=== PATIENT | male | born 1950 | race Caucasian/White ===

== ENCOUNTER → 2022-06-01 09:36 | Outpatient (CLI) | payer MEDICARE, OTHER, SELFPAY ==
[2022-06-01 19:26] LABS: HEMOLYSIS < 15 (0-50); Iron 120 ug/dL (49-181)
[2022-06-01 19:32] LABS: Add Manual Diff / Slide Review NO; Basophils Absolute Auto 0 /uL (0-100); Basophils Percent Auto 0.7 % (0-2); Eosinophils Absolute Auto 500 /uL (0-450); Eosinophils Percent Auto 12.2 % (2-4); Hematocrit 39.1 % (41-53); Hemoglobin 13.4 g/dL (13.5-17.5); Lymphocytes Absolute Auto 900 /uL (1100-4500); Lymphocytes Percent Auto 22.2 % (25-40); Mean Corpuscular HGB Conc 34.2 % (30-36); Mean Corpuscular Hemoglobin 31.4 PG (26-34); Mean Corpuscular Volume 91.9 fL (80-100); Monocytes Absolute Auto 500 /uL (0-900); Monocytes Percent Auto 13.4 % (3-14); Neutrophils Absolute Auto 2000 /uL (1500-7000); Neutrophils Percent Auto 51.5 % (50-75); Platelet Count 264 X10^3/uL (150-400); Red Blood Cell Count 4.26 X10^6/uL (4.5-5.9); Red Cell Distribution Width 13.6 % (11.6-14.8); White Blood Cell Count 3.9 X10^3/uL (4.5-11.0)
[2022-06-01 19:36] LABS: BUN Creatinine Ratio 18.1 (6-22); Blood Urea Nitrogen 15 mg/dL (9-20); Carbon Dioxide 29 mmol/L (22-32); Chloride 104 mmol/L (98-107); Cholesterol 155 mg/dL (140-199); Estimated Glomerular Filt Rate > 60 mL/min (>60); Glucose 101 mg/dL (80-110); HDL Cholesterol 69 mg/dL (40-60); HEMOLYSIS < 15 (0-50); LDL Cholesterol Calculated 77 mg/dL (<100); Potassium 4.3 mmol/L (3.4-5.1); Sodium 139 mmol/L (137-145); Triglycerides 46 mg/dL (35-150)
[2022-06-01 19:39] LABS: Microalbumi Creatinin Ratio Ur 7.4 ug/mg CR (<30); Microalbumin Urine Random 0.8 mg/dL (0-1.6)
[2022-06-01 19:40] LABS: Percent Iron Saturation 47 % (20-50); Total Iron Binding Capacity 253 ug/dL (261-462); Transferrin 193 mg/dL (206-381)
[2022-06-01 19:42] LABS: Hemoglobin A1C% w Est Avg Glu 5.6 % (4.0-6.0)
[2022-06-01 20:32] LABS: Vitamin B12 274 pg/mL (239-931)
== END ==
PROVIDERS: Family Provider Family Medicine; PCP Family Medicine; Visit Provider Family Medicine
DX: D64.9 Anemia, unspecified (principal); E78.2 Mixed hyperlipidemia; R73.9 Hyperglycemia, unspecified; I10 Essential (primary) hypertension; K21.9 Gastro-esophageal reflux disease without esophagitis; M25.552 Pain in left hip
CPT/HCPCS: 80048; 80061; 82043; 82570; 82607; 83036; 83540; 83550; 85025

== ENCOUNTER → 2022-06-02 09:27 | Outpatient (CLI) | payer MEDICARE, OTHER, SELFPAY ==
[2022-06-04 12:29] LABS: Fecal Immunochemical Test Negative (Negative)
== END ==
PROVIDERS: Family Provider Family Medicine; PCP Family Medicine; Visit Provider Family Medicine
DX: D64.9 Anemia, unspecified (principal); E78.2 Mixed hyperlipidemia; I10 Essential (primary) hypertension; K21.9 Gastro-esophageal reflux disease without esophagitis; M25.552 Pain in left hip; R73.9 Hyperglycemia, unspecified
CPT/HCPCS: 82274

== ENCOUNTER → 2023-09-14 10:04 | Outpatient (CLI) | payer MEDICARE, OTHER, SELFPAY ==
[2023-09-14 10:27] LABS: Add Manual Diff / Slide Review NO; Basophils Absolute Auto 0 /uL (0-100); Basophils Percent Auto 0.8 % (0-2); Eosinophils Absolute Auto 400 /uL (0-450); Eosinophils Percent Auto 10.1 % (2-4); Hematocrit 40.4 % (41-53); Hemoglobin 13.7 g/dL (13.5-17.5); Lymphocytes Absolute Auto 1100 /uL (1100-4500); Lymphocytes Percent Auto 25.7 % (25-40); Mean Corpuscular HGB Conc 33.9 % (30-36); Mean Corpuscular Hemoglobin 31.1 PG (26-34); Mean Corpuscular Volume 91.9 fL (80-100); Monocytes Absolute Auto 600 /uL (0-900); Monocytes Percent Auto 13.5 % (3-14); Neutrophils Absolute Auto 2100 /uL (1500-7000); Neutrophils Percent Auto 49.9 % (50-75); Platelet Count 261 X10^3/uL (150-400); Red Blood Cell Count 4.39 X10^6/uL (4.5-5.9); Red Cell Distribution Width 14.3 % (11.6-14.8); White Blood Cell Count 4.2 X10^3/uL (4.5-11.0)
[2023-09-14 10:41] LABS: Alanine Aminotransferase 23 IU/L (<50); Albumin 3.9 g/dL (3.5-5.0); Albumin Globulin Ratio 1.3 (1.0-2.8); Alkaline Phosphatase 75 U/L (38-126); Aspartate Aminotransferase 24 IU/L (17-59); BUN Creatinine Ratio 19.5 (6-22); Bilirubin Total 0.5 mg/dL (0.2-1.3); Blood Urea Nitrogen 15 mg/dL (9-20); Calcium 9.3 mg/dL (8.4-10.2); Carbon Dioxide 27 mmol/L (22-32); Chloride 103 mmol/L (98-107); Cholesterol 299 mg/dL (140-199); Estimated Glomerular Filt Rate > 60 mL/min (>60); Glucose 112 mg/dL (80-110); HDL Cholesterol 55 mg/dL (40-60); HEMOLYSIS < 15 (0-50); LDL Cholesterol Calculated 211 mg/dL (<100); Potassium 4.2 mmol/L (3.4-5.1); Sodium 137 mmol/L (137-145); Total Protein 6.9 g/dL (6.3-8.2); Triglycerides 167 mg/dL (35-150)
[2023-09-14 11:42] LABS: Hep C Virus Ab w/Reflex Quant NEGATIVE s/c (NEGATIVE)
== END ==
PROVIDERS: Family Provider Family Medicine; PCP Family Medicine; Referring Provider Family Medicine; Visit Provider Family Medicine
DX: E78.2 Mixed hyperlipidemia (principal); I10 Essential (primary) hypertension; D64.9 Anemia, unspecified
CPT/HCPCS: 36415; 80053; 80061; 85025; 86803

== ENCOUNTER → 2023-11-04 14:00 | Outpatient (CLI) | payer MEDICARE, OTHER, SELFPAY ==
[2023-11-04 14:29] LABS: Add Manual Diff / Slide Review NO; Basophils Absolute Auto 0 /uL (0-100); Basophils Percent Auto 0.4 % (0-2); Eosinophils Absolute Auto 300 /uL (0-450); Eosinophils Percent Auto 7.1 % (2-4); Hematocrit 40.5 % (41-53); Hemoglobin 13.7 g/dL (13.5-17.5); Lymphocytes Absolute Auto 1000 /uL (1100-4500); Lymphocytes Percent Auto 20.5 % (25-40); Mean Corpuscular HGB Conc 33.8 % (30-36); Mean Corpuscular Hemoglobin 31.5 PG (26-34); Mean Corpuscular Volume 93.4 fL (80-100); Monocytes Absolute Auto 600 /uL (0-900); Monocytes Percent Auto 12.9 % (3-14); Neutrophils Absolute Auto 2900 /uL (1500-7000); Neutrophils Percent Auto 59.1 % (50-75); Platelet Count 242 X10^3/uL (150-400); Red Blood Cell Count 4.34 X10^6/uL (4.5-5.9); Red Cell Distribution Width 13.6 % (11.6-14.8); White Blood Cell Count 4.8 X10^3/uL (4.5-11.0)
[2023-11-04 18:41] LABS: BUN Creatinine Ratio 21.1 (6-22); Blood Urea Nitrogen 15 mg/dL (9-20); Calcium 9.5 mg/dL (8.4-10.2); Carbon Dioxide 28 mmol/L (22-32); Chloride 105 mmol/L (98-107); Estimated Glomerular Filt Rate > 60 mL/min (>60); Glucose 123 mg/dL (80-110); HEMOLYSIS < 15 (0-50); Potassium 4.1 mmol/L (3.4-5.1); Sodium 138 mmol/L (137-145)
== END ==
PROVIDERS: Family Provider Family Medicine; PCP Family Medicine; Referring Provider Orthopaedic Surgery; Visit Provider Orthopaedic Surgery
DX: Z01.818 Encounter for other preprocedural examination (principal); Z01.812 Encounter for preprocedural laboratory examination
CPT/HCPCS: 36415; 80048; 85025; 93005; 93010

== ENCOUNTER → 2023-11-19 13:33 | Outpatient (CLI) | payer MEDICARE, OTHER, SELFPAY ==
--- NOTE | 2023-11-19 | DI.CT.S_ITS ---
PROCEDURE: CT UE RT WO CON INDICATIONS: Primary osteoarthritis, right shoulder TECHNIQUE: Noncontrast 1-1.5 mm thick sections acquired from the acromioclavicular joint to the inferior scapula, with coronal and sagittal reformatting. COMPARISON: [facility] [place], CR, XR SHOULDER 2+ VIEWS RIGHT, 07/21/2023, 8:51. FINDINGS: Image quality: Excellent. Bones: There is sclerosis and fragmentation with mild articular surface depression at the superior medial aspect of the humeral head involving the articular surface comprising an area of approximately 4.7 x 3.5 by 1.3 cm. The articular surface osseous fragments appear sclerotic with multiple fracture lines extending to the articular surface. Findings may be secondary to osteonecrosis with secondary articular surface collapse and fragmentation versus a depressed and comminuted subchondral fracture. Mild chronic fracture deformity at the humeral neck. Moderate to severe joint space narrowing in the glenohumeral joint. Marginal osteophyte formation is seen on both sides of the joint. Fpea-[id number]-xpcufszp degenerative changes at the acromioclavicular joint. Old healed right-sided rib fracture. The remaining visualized osseous structures are intact. There is generalized osteopenia. Soft tissues: There is a small glenohumeral effusion. The rotator cuff musculature is normal in bulk. However, the tendons, ligaments, articular cartilages, and labrum are not well evaluated with standard CT. The included portions of the lung are intact. IMPRESSION: 1. Sclerosis, fragmentation, and mild depression of the superior medial humeral head articular surface, which may be secondary to osteonecrosis and secondary collapse versus a comminuted subchondral fracture. 2. Moderate to severe glenohumeral osteoarthrosis. Small glenohumeral effusion. 3. [id number] acromioclavicular joint osteoarthrosis. Approved by: Bernard Navarro M.D. on 11/21/2023 at 16:36
== END ==
PROVIDERS: Family Provider Family Medicine; PCP Family Medicine; Referring Provider Orthopaedic Surgery; Visit Provider Orthopaedic Surgery
DX: M19.011 Primary osteoarthritis, right shoulder (principal); M25.411 Effusion, right shoulder
CPT/HCPCS: 73200

== ENCOUNTER → 2024-09-20 13:38 | Outpatient (CLI) | payer MEDICARE, OTHER, SELFPAY ==
[2024-09-20 15:19] LABS: Alanine Aminotransferase 29 IU/L (<50); Albumin Globulin Ratio 1.4 (1.0-2.8); Alkaline Phosphatase 100 U/L (38-126); Aspartate Aminotransferase 32 IU/L (17-59); BUN Creatinine Ratio 14.1 (6-22); Bilirubin Total 0.7 mg/dL (0.2-1.3); Blood Urea Nitrogen 12 mg/dL (9-20); Calcium 9.2 mg/dL (8.4-10.2); Carbon Dioxide 26 mmol/L (22-32); Chloride 106 mmol/L (98-107); Cholesterol 194 mg/dL (140-199); Estimated Glomerular Filt Rate > 60 mL/min (>60); Globulin 2.9 g/dL (1.7-4.1); Glucose 100 mg/dL (80-110); HDL Cholesterol 62 mg/dL (40-60); HEMOLYSIS < 15 (0-50); LDL Cholesterol Calculated 110 mg/dL (<100); Potassium 4.3 mmol/L (3.4-5.1); Sodium 138 mmol/L (137-145); Total Protein 6.9 g/dL (6.3-8.2); Triglycerides 109 mg/dL (35-150)
== END ==
PROVIDERS: Family Provider Family Medicine; PCP Family Medicine; Referring Provider Family Medicine; Visit Provider Family Medicine
DX: Z00.00 Encounter for general adult medical examination without abnormal findings (principal); E78.2 Mixed hyperlipidemia; I10 Essential (primary) hypertension; R73.01 Impaired fasting glucose
CPT/HCPCS: 36415; 80053; 80061; 83036

== ENCOUNTER → 2025-02-22 09:33 | Outpatient (CLI) | payer MEDICARE, OTHER, SELFPAY ==
--- NOTE | 2025-02-22 09:36 | DI.RAD.S_ITS ---
PROCEDURE: XR CHEST 2V INDICATIONS: Rt anterior rib pain TECHNIQUE: 2 views of the chest were acquired. COMPARISON: None. FINDINGS: Surgical changes and devices: None. Lungs and pleura: Lungs are clear. No pleural effusions or pneumothorax. Mediastinum: Mediastinal contours are normal. Heart size is normal. Bones and chest wall: No suspicious bony abnormalities. Soft tissues appear unremarkable. IMPRESSION: No acute cardiopulmonary abnormality is seen. Dictated by: Liang Gay M.D. on 02/22/2025 at 10:42 Approved by: Liang Gay M.D. on 02/22/2025 at 10:43
== END ==
PROVIDERS: PCP Family Medicine; Referring Provider Family Medicine; Visit Provider Family Medicine
DX: R07.81 Pleurodynia (principal)
CPT/HCPCS: 71046

== ENCOUNTER 2025-04-02 14:45 | Inpatient (IN) | payer MEDICARE, OTHER, SELFPAY ==
[2025-04-02 14:54] VITALS: BP 169/95; PULSE 76; RESP 16; TEMP 36.6; O2SAT 96; BMI 27.5
[2025-04-02 15:07] LABS: Add Manual Diff / Slide Review NO; Basophils Absolute Auto 0 /uL (0-100); Basophils Percent Auto 0.5 % (0-2); Eosinophils Absolute Auto 300 /uL (0-450); Eosinophils Percent Auto 4.7 % (2-4); Hematocrit 42.4 % (41-53); Hemoglobin 14.5 g/dL (13.5-17.5); Lymphocytes Absolute Auto 1300 /uL (1100-4500); Lymphocytes Percent Auto 19.8 % (25-40); Mean Corpuscular HGB Conc 34.3 % (30-36); Mean Corpuscular Hemoglobin 31.7 PG (26-34); Mean Corpuscular Volume 92.5 fL (80-100); Monocytes Absolute Auto 700 /uL (0-900); Monocytes Percent Auto 11.2 % (3-14); Neutrophils Absolute Auto 4100 /uL (1500-7000); Neutrophils Percent Auto 63.8 % (50-75); Platelet Count 270 X10^3/uL (150-400); Red Blood Cell Count 4.58 X10^6/uL (4.5-5.9); Red Cell Distribution Width 13.9 % (11.6-14.8); White Blood Cell Count 6.4 X10^3/uL (4.5-11.0)
[2025-04-02] MEDS: ONDANSETRON 4 MG/2 ML INJ IV ×2 (15:17→22:08)
--- NOTE | 2025-04-02 15:19 | EKG_ITS ---
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
[2025-04-02 15:20] LABS: Alanine Aminotransferase 34 IU/L (<50); Albumin 4.1 g/dL (3.5-5.0); Albumin Globulin Ratio 1.3 (1.0-2.8); Alkaline Phosphatase 98 U/L (38-126); Aspartate Aminotransferase 39 IU/L (17-59); BUN Creatinine Ratio 18.6 (6-22); Bilirubin Total 0.7 mg/dL (0.2-1.3); Blood Urea Nitrogen 13 mg/dL (9-20); Calcium 8.7 mg/dL (8.4-10.2); Carbon Dioxide 23 mmol/L (22-32); Chloride 106 mmol/L (98-107); Estimated Glomerular Filt Rate > 60 mL/min (>60); Globulin 3.2 g/dL (1.7-4.1); Glucose 125 mg/dL (70-99); HEMOLYSIS < 15 (0-50); Lipase 88 U/L (23-300); Sodium 136 mmol/L (137-145); Total Protein 7.3 g/dL (6.3-8.2)
--- NOTE | 2025-04-02 15:51 | DI.US.S_ITS ---
PROCEDURE: US ABDOMEN LIMITED INDICATIONS: RUQ pain TECHNIQUE: Real-time focused scanning was performed of the abdomen, with image documentation. COMPARISON: None. FINDINGS: The liver is normal in size and demonstrates no suspicious lesions. The gallbladder is overall not well seen. No findings of gallstones or sludge are seen. The gallbladder wall is not thickened, measuring 3 mm or less. No specific pericholecystic fluid is seen. The sonographic Griffiths sign is negative. There is no biliary dilatation, the common bile duct measures 5 mm. IMPRESSION: The gallbladder demonstrates a normal sonographic appearance. No biliary dilatation is seen. Dictated by: Bruce Arredondo M.D. on 04/02/2025 at 15:24 Approved by: Bruce Arredondo M.D. on 04/02/2025 at 15:25
--- NOTE | 2025-04-02 15:59 | ED.ABDPAIN ---
HPI - Abdominal Pain <Vinicio Biggs PA-C - Last Filed: 04/02/25 18:55> General Chief Complaint: Abdominal Pain Stated Complaint: Rt Rib pain, Nausea Time Seen by Provider: 04/02/25 15:41 Source: patient Mode of arrival: Ambulatory History of Present Illness HPI narrative: 74-year-old male with past medical history hyperlipidemia, hypertension, GERD, depression presents to the ED for 1-2 months of right upper quadrant pain. Patient was seen by his PCP Dr. Hillman and prescribed naproxen due to suspicion for a musculoskeletal etiology. Patient's symptoms have worsened since then, he presents to the ED with what he feels like is right sided lower rib pain versus right upper quadrant pain. Patient is in significant pain and is pacing in the ED. patient also endorses nausea. No fever, chills, shortness of breath, vomiting, constipation, diarrhea, lightheadedness, dizziness, syncope. Patient has a history of GERD for which he takes pantoprazole. Related Data Previous Rx's Medication Instructions Recorded atorvastatin 80 mg tablet (Lipitor) 80 mg PO BEDTIME cholesterol #90 09/20/24 tabs losartan 50 mg tablet 50 mg PO DAILY #90 tabs 09/20/24 pantoprazole 40 mg tablet,delayed 40 mg PO QAM #90 tabs 09/20/24 release ezetimibe 10 mg tablet (Zetia) 10 mg PO DAILY #100 tabs 09/21/24 naproxen 500 mg tablet 500 mg PO BID PRN pain #60 tabs 02/22/25 cyclobenzaprine 10 mg tablet 10 mg PO Q8HR PRN Spasms #60 tabs 04/04/25 lidocaine 5 % topical patch 1 patch topical DAILY #30 ea 04/04/25 oxycodone 5 mg capsule 5 mg PO Q8H PRN pain #14 caps 04/04/25 Allergies Allergy/AdvReac Type Severity Reaction Status Date / Time pollen extracts Allergy Mild Verified 04/02/25 14:58 Review of Systems <Vinicio Biggs PA-C - Last Filed: 04/02/25 18:55> Constitutional Constitutional: Denies chills, Denies fatigue, Denies fever(s), Denies frequent falls, Denies lethargy and Denies weakness Eyes Eyes: Denies change in vision, Denies eye discharge, Denies irritation and Denies loss of vision ENT Ears, Nose, Mouth, and Throat: Denies change in voice, Denies dizziness, Denies neck pain, Denies sore throat and Denies throat swelling Cardiovascular Cardiovascular: Reports chest pain, Denies irregular heart rhythm, Denies lightheadedness, Denies palpitations, Denies dyspnea, Denies dyspnea on exertion and Denies orthopnea Respiratory Respiratory: Denies cough, Denies dyspnea, Denies dyspnea on exertion and Denies wheezing Gastrointestinal Gastrointestinal: Reports abdominal pain, Denies change in bowel habits, Denies diarrhea, Reports nausea and Denies vomiting Musculoskeletal Musculoskeletal: Denies neck pain and Denies numbness Integumentary/Breasts Skin/Breast: Denies pruritus, Denies erythema, Denies rash and Denies wounds Neurologic Neurologic: Denies behavioral changes, Denies confusion, Denies dizziness, Denies frequent falls, Denies loss of vision, Denies numbness and Denies weakness Psychiatric Psychiatric: Denies anxiety, Denies behavioral changes, Denies confusion, Denies depression, Denies homicidal ideation and Denies suicidal ideation Endocrine Endocrine: Denies fatigue, Denies flushing and Denies palpitations Hematologic/Lymphatic Hematologic/Lymphatic: Denies easy bruising Allergic/Immunologic Allergic/Immunologic: Denies urticaria, Denies throat swelling and Denies wheezing Patient History <Vinicio Biggs PA-C - Last Filed: 04/02/25 18:55> Medical History POLST (Physician Orders for Life-Sustaining Treatment) Encounter for annual wellness exam in Medicare patient HLD (hyperlipidemia) Kidney stones Insomnia Depression, unspecified Surgical History H/O vasectomy Hx of lithotripsy History of surgery History of total right hip replacement (~2015) S/P cervical spinal fusion (2011) Social History household members: significant other alcohol intake: current Smoking Status: Former smoker alcohol intake frequency: a few times a week Exam <Vinicio Biggs PA-C - Last Filed: 04/02/25 18:55> Narrative Exam Narrative: Const General:?cooperative, healthy appearing and comfortable HENNC Head:?normal to inspection Ears:?hearing grossly normal bilaterally Nose:?external nose normal Face and sinus:?normal facial exam and sinuses nontender Mouth:?oral mucosae normal Throat:?posterior oropharynx normal Eyes General:?appearance normal, both eyes and all related structures Neck Neck:?normal visual inspection and no lymphadenopathy noted Resp Effort & Inspection:?normal respiratory effort Auscultation:?clear to auscultation bilaterally Cardio Rate:?regular rate Rhythm:?regular rhythm GI Abdomen is soft, nondistended. Tenderness to palpation in the right upper quadrant and epigastric regions. Neuro General:?patient alert, patient awake and patient oriented x3 Initial Vital Signs Initial Vital Signs: Vital Signs Temperature 98 F 04/02/25 14:54 Pulse Rate 76 04/02/25 14:54 Respiratory Rate 16 04/02/25 14:54 Blood Pressure 169/95 H 04/02/25 14:54 Pulse Oximetry 96 04/02/25 14:54 Oxygen Delivery Method Room Air 04/02/25 14:54 <Betina Doyle DO - Last Filed: 04/08/25 23:45> Initial Vital Signs Initial Vital Signs: Vital Signs Temperature 98 F 04/02/25 14:54 Pulse Rate 76 04/02/25 14:54 Respiratory Rate 16 04/02/25 14:54 Blood Pressure 169/95 H 04/02/25 14:54 Pulse Oximetry 96 04/02/25 14:54 Oxygen Delivery Method Room Air 04/02/25 14:54 Course <Vinicio Biggs PA-C - Last Filed: 04/02/25 18:55> Orders Ordered: Discontinued Medications Acetaminophen (Acetaminophen 325 Mg Tablet) 650 mg PO Q6H PRN PRN Reason: Fever/Mild Pain (1-3) Hydrocodone Bitart/Acetaminophen (Hydrocodone/Acet 5/325 Tablet) 1 tab PO Q4H PRN PRN Reason: Pain, Moderate (4-6) Atorvastatin Calcium (Atorvastatin 20 Mg Tablet) 80 mg PO BEDTIME AYAN Last Admin: 04/03/25 20:24 Dose: 80 mg Documented By: Calcium Carbonate (Calcium Carbonate 500 Mg Tab) 500 mg PO TID PRN PRN Reason: Heartburn Last Admin: 04/03/25 21:41 Dose: 500 mg Documented By: Cyclobenzaprine HCl (Cyclobenzaprine 10 Mg Tablet) 10 mg PO Q8HR PRN PRN Reason: Spasms Last Admin: 04/04/25 07:57 Dose: 10 mg Documented By: Admin: 04/03/25 19:06 Dose: 10 mg Documented By: DEBORAH Diazepam (Diazepam 10 Mg/2 Ml Syringe) 2.5 mg IV Q4H PRN PRN Reason: ANXIETY / NAUSEA Diazepam (Diazepam 10 Mg/2 Ml Syringe) 2.5 mg IV Q2H PRN PRN Reason: ANXIETY / NAUSEA Enoxaparin Sodium (Enoxaparin 40 Mg/0.4 Ml Syringe) 40 mg SUBCUT DAILY [facility] Last Admin: 04/04/25 10:17 Dose: 40 mg Documented By: DEBORAH Famotidine (Famotidine 20 Mg/2 Ml Vial) 40 mg IV NOW [facility] Last Admin: 04/02/25 17:08 Dose: 40 mg Documented By: RB Hydromorphone HCl (Hydromorphone 1 Mg Inj) 1 mg IV NOW ONE Stop: 04/02/25 17:52 Last Admin: 04/02/25 17:57 Dose: 1 mg Documented By: RB Hydromorphone HCl (Hydromorphone 0.5 Mg Inj) 0.5 mg IV Q2H PRN PRN Reason: Pain, Severe (7-10) Last Admin: 04/03/25 05:20 Dose: 0.5 mg Documented By: Admin: 04/03/25 00:54 Dose: 0.5 mg Documented By: Admin: 04/02/25 23:05 Dose: 0.5 mg Documented By: Admin: 04/02/25 19:44 Dose: 0.5 mg Documented By: AMANDA Hydromorphone HCl (Hydromorphone 1 Mg Inj) 1 mg IV Q2H PRN PRN Reason: Pain, Severe (7-10) Last Admin: 04/03/25 10:03 Dose: 1 mg Documented By: Admin: 04/03/25 07:59 Dose: 1 mg Documented By: JONA Hydromorphone HCl (Hydromorphone 0.5 Mg Inj) 0.5 mg IV Q2H PRN PRN Reason: Pain, Severe (7-10) Last Admin: 04/04/25 06:46 Dose: 0.5 mg Documented By: Admin: 04/03/25 18:17 Dose: 0.5 mg Documented By: Admin: 04/03/25 14:51 Dose: 0.5 mg Documented By: CEW Sodium Chloride (Normal Saline 0.9%) 1,000 mls @ 100 mls/hr IV CONT AYAN Last Admin: 04/03/25 06:30 Dose: 100 mls/hr Documented By: Infusion: 04/03/25 05:44 Dose: Infused Documented By: Admin: 04/02/25 19:44 Dose: 100 mls/hr Documented By: TLS Lactated Ringer's (Lactated Ringers) 1,000 mls @ 150 mls/hr IV NOW ONE Stop: 04/03/25 16:56 Last Infusion: 04/03/25 11:46 Dose: Infused Documented By: Admin: 04/03/25 11:11 Dose: 150 mls/hr Documented By: Infusion: 04/03/25 11:10 Dose: Infused Documented By: Admin: 04/03/25 10:18 Dose: 150 mls/hr Documented By: TC Lactated Ringer's (Lactated Ringers) 1,000 mls @ 125 mls/hr IV CONT AYAN Last Admin: 04/04/25 05:38 Dose: 125 mls/hr Documented By: Infusion: 04/04/25 05:28 Dose: Infused Documented By: Admin: 04/03/25 21:28 Dose: 125 mls/hr Documented By: Infusion: 04/03/25 20:30 Dose: Infused Documented By: Admin: 04/03/25 12:30 Dose: 125 mls/hr Documented By: DEBORAH Ketorolac Tromethamine (Ketorolac 30 Mg/Ml Vial) 15 mg IV NOW ONE Stop: 04/02/25 15:48 Last Admin: 04/02/25 16:04 Dose: 15 mg Documented By: TC Lidocaine (Lidocaine 5% Patch) 1 each TOP DAILY AYAN Last Admin: 04/04/25 10:17 Dose: 1 each Documented By: ANNAW Lorazepam (Lorazepam 2 Mg/Ml Inj) 1 mg IV NOW ONE Stop: 04/03/25 06:46 Last Admin: 04/03/25 07:37 Dose: Not Given Documented By: AGW Morphine Sulfate (Morphine 4 Mg/Ml Inj) 4 mg IV NOW ONE Stop: 04/02/25 16:45 Last Admin: 04/02/25 16:48 Dose: 4 mg Documented By: RB Naloxone HCl (Naloxone 0.4 Mg/Ml Vial) 0.2 mg IV Q2MIN PRN PRN Reason: Opiate Reversal Naloxone HCl (Naloxone 0.4 Mg/Ml Vial) 0.2 mg IV Q2MIN PRN PRN Reason: Opiate Reversal Ondansetron HCl (Ondansetron 4 Mg/2 Ml Inj) 4 mg IV NOW PRN PRN Reason: Nausea And Vomiting Last Admin: 04/02/25 15:17 Dose: 4 mg Documented By: FAYE Ondansetron HCl (Ondansetron 4 Mg Odt) 4 mg PO NOW PRN PRN Reason: Nausea And Vomiting Ondansetron HCl (Ondansetron 4 Mg/2 Ml Inj) 4 mg IV Q8HR PRN PRN Reason: Nausea And Vomiting Last Admin: 04/02/25 22:08 Dose: 4 mg Documented By: WINTER Ondansetron HCl (Ondansetron 4 Mg/2 Ml Inj) 4 mg IV Q4HR PRN PRN Reason: Nausea And Vomiting Last Admin: 04/03/25 06:17 Dose: 4 mg Documented By: NIGEL Ondansetron HCl (Ondansetron 4 Mg/2 Ml Inj) 4 mg IV Q4HR PRN PRN Reason: Nausea And Vomiting Last Admin: 04/03/25 14:51 Dose: 4 mg Documented By: DEBORAH Oxycodone HCl (Oxycodone Ir 10 Mg Tablet) 10 mg PO Q3H PRN PRN Reason: Pain, Severe (7-10) Last Admin: 04/04/25 05:37 Dose: 10 mg Documented By: Admin: 04/04/25 02:07 Dose: 10 mg Documented By: Admin: 04/03/25 13:39 Dose: 10 mg Documented By: DEBORAH Sodium Chloride (Sodium Chloride 0.9% Flush) 10 ml IV PRN PRN PRN Reason: Flush Sodium Chloride (Sodium Chloride 0.9% Flush) 10 ml IV BID AYAN Last Admin: 04/04/25 07:57 Dose: Not Given Documented By: DEBORAH Vital Signs Vital signs: Vital Signs - 8 hr 04/02/25 14:54 04/02/25 16:50 04/02/25 18:00 Temperature 98 F Pulse Rate 76 68 62 Respiratory Rate 16 22 28 H Blood Pressure 169/95 H 163/83 H 158/89 H Pulse Oximetry 96 98 99 Oxygen Delivery Method Room Air Room Air Room Air <Betina Doyle, DO - Last Filed: 04/08/25 23:45> Orders Ordered: Discontinued Medications Acetaminophen (Acetaminophen 325 Mg Tablet) 650 mg PO Q6H PRN PRN Reason: Fever/Mild Pain (1-3) Hydrocodone Bitart/Acetaminophen (Hydrocodone/Acet 5/325 Tablet) 1 tab PO Q4H PRN PRN Reason: Pain, Moderate (4-6) Atorvastatin Calcium (Atorvastatin 20 Mg Tablet) 80 mg PO BEDTIME [facility] Last Admin: 04/03/25 20:24 Dose: 80 mg Documented By: Calcium Carbonate (Calcium Carbonate 500 Mg Tab) 500 mg PO TID PRN PRN Reason: Heartburn Last Admin: 04/03/25 21:41 Dose: 500 mg Documented By: Cyclobenzaprine HCl (Cyclobenzaprine 10 Mg Tablet) 10 mg PO Q8HR PRN PRN Reason: Spasms Last Admin: 04/04/25 07:57 Dose: 10 mg Documented By: Admin: 04/03/25 19:06 Dose: 10 mg Documented By: DEBORAH Diazepam (Diazepam 10 Mg/2 Ml Syringe) 2.5 mg IV Q4H PRN PRN Reason: ANXIETY / NAUSEA Diazepam (Diazepam 10 Mg/2 Ml Syringe) 2.5 mg IV Q2H PRN PRN Reason: ANXIETY / NAUSEA Enoxaparin Sodium (Enoxaparin 40 Mg/0.4 Ml Syringe) 40 mg SUBCUT DAILY [facility] Last Admin: 04/04/25 10:17 Dose: 40 mg Documented By: DEBORAH Famotidine (Famotidine 20 Mg/2 Ml Vial) 40 mg IV NOW [facility] Last Admin: 04/02/25 17:08 Dose: 40 mg Documented By: HYACINTH Hydromorphone HCl (Hydromorphone 1 Mg Inj) 1 mg IV NOW ONE Stop: 04/02/25 17:52 Last Admin: 04/02/25 17:57 Dose: 1 mg Documented By: HYACINTH Hydromorphone HCl (Hydromorphone 0.5 Mg Inj) 0.5 mg IV Q2H PRN PRN Reason: Pain, Severe (7-10) Last Admin: 04/03/25 05:20 Dose: 0.5 mg Documented By: Admin: 04/03/25 00:54 Dose: 0.5 mg Documented By: Admin: 04/02/25 23:05 Dose: 0.5 mg Documented By: Admin: 04/02/25 19:44 Dose: 0.5 mg Documented By: AMANDA Hydromorphone HCl (Hydromorphone 1 Mg Inj) 1 mg IV Q2H PRN PRN Reason: Pain, Severe (7-10) Last Admin: 04/03/25 10:03 Dose: 1 mg Documented By: Admin: 04/03/25 07:59 Dose: 1 mg Documented By: JONA Hydromorphone HCl (Hydromorphone 0.5 Mg Inj) 0.5 mg IV Q2H PRN PRN Reason: Pain, Severe (7-10) Last Admin: 04/04/25 06:46 Dose: 0.5 mg Documented By: Admin: 04/03/25 18:17 Dose: 0.5 mg Documented By: Admin: 04/03/25 14:51 Dose: 0.5 mg Documented By: DEBORAH Sodium Chloride (Normal Saline 0.9%) 1,000 mls @ 100 mls/hr IV CONT AYAN Last Admin: 04/03/25 06:30 Dose: 100 mls/hr Documented By: Infusion: 04/03/25 05:44 Dose: Infused Documented By: Admin: 04/02/25 19:44 Dose: 100 mls/hr Documented By: AMANDA Lactated Ringer's (Lactated Ringers) 1,000 mls @ 150 mls/hr IV NOW ONE Stop: 04/03/25 16:56 Last Infusion: 04/03/25 11:46 Dose: Infused Documented By: Admin: 04/03/25 11:11 Dose: 150 mls/hr Documented By: Infusion: 04/03/25 11:10 Dose: Infused Documented By: Admin: 04/03/25 10:18 Dose: 150 mls/hr Documented By: GMAA Lactated Ringer's (Lactated Ringers) 1,000 mls @ 125 mls/hr IV CONT AYAN Last Admin: 04/04/25 05:38 Dose: 125 mls/hr Documented By: Infusion: 04/04/25 05:28 Dose: Infused Documented By: Admin: 04/03/25 21:28 Dose: 125 mls/hr Documented By: Infusion: 04/03/25 20:30 Dose: Infused Documented By: Admin: 04/03/25 12:30 Dose: 125 mls/hr Documented By: DEBORAH Ketorolac Tromethamine (Ketorolac 30 Mg/Ml Vial) 15 mg IV NOW ONE Stop: 04/02/25 15:48 Last Admin: 04/02/25 16:04 Dose: 15 mg Documented By: GAMA Lidocaine (Lidocaine 5% Patch) 1 each TOP DAILY AYAN Last Admin: 04/04/25 10:17 Dose: 1 each Documented By: DEBORAH Lorazepam (Lorazepam 2 Mg/Ml Inj) 1 mg IV NOW ONE Stop: 04/03/25 06:46 Last Admin: 04/03/25 07:37 Dose: Not Given Documented By: WINTER Morphine Sulfate (Morphine 4 Mg/Ml Inj) 4 mg IV NOW ONE Stop: 04/02/25 16:45 Last Admin: 04/02/25 16:48 Dose: 4 mg Documented By: HYACINTH Naloxone HCl (Naloxone 0.4 Mg/Ml Vial) 0.2 mg IV Q2MIN PRN PRN Reason: Opiate Reversal Naloxone HCl (Naloxone 0.4 Mg/Ml Vial) 0.2 mg IV Q2MIN PRN PRN Reason: Opiate Reversal Ondansetron HCl (Ondansetron 4 Mg/2 Ml Inj) 4 mg IV NOW PRN PRN Reason: Nausea And Vomiting Last Admin: 04/02/25 15:17 Dose: 4 mg Documented By: FAYE Ondansetron HCl (Ondansetron 4 Mg Odt) 4 mg PO NOW PRN PRN Reason: Nausea And Vomiting Ondansetron HCl (Ondansetron 4 Mg/2 Ml Inj) 4 mg IV Q8HR PRN PRN Reason: Nausea And Vomiting Last Admin: 04/02/25 22:08 Dose: 4 mg Documented By: WINTER Ondansetron HCl (Ondansetron 4 Mg/2 Ml Inj) 4 mg IV Q4HR PRN PRN Reason: Nausea And Vomiting Last Admin: 04/03/25 06:17 Dose: 4 mg Documented By: NIGEL Ondansetron HCl (Ondansetron 4 Mg/2 Ml Inj) 4 mg IV Q4HR PRN PRN Reason: Nausea And Vomiting Last Admin: 04/03/25 14:51 Dose: 4 mg Documented By: DEBORAH Oxycodone HCl (Oxycodone Ir 10 Mg Tablet) 10 mg PO Q3H PRN PRN Reason: Pain, Severe (7-10) Last Admin: 04/04/25 05:37 Dose: 10 mg Documented By: Admin: 04/04/25 02:07 Dose: 10 mg Documented By: Admin: 04/03/25 13:39 Dose: 10 mg Documented By: DEBORAH Sodium Chloride (Sodium Chloride 0.9% Flush) 10 ml IV PRN PRN PRN Reason: Flush Sodium Chloride (Sodium Chloride 0.9% Flush) 10 ml IV BID AYAN Last Admin: 04/04/25 07:57 Dose: Not Given Documented By: DEBORAH Vital Signs Vital signs: Vital Signs - 8 hr 04/02/25 14:54 04/02/25 16:50 04/02/25 18:00 Temperature 98 F Pulse Rate 76 68 62 Respiratory Rate 16 22 28 H Blood Pressure 169/95 H 163/83 H 158/89 H Pulse Oximetry 96 98 99 Oxygen Delivery Method Room Air Room Air Room Air MDM - Abdominal Pain <Vinicio Biggs PA-C - Last Filed: 04/02/25 18:55> Lab Data 04/04/25 04:00 04/03/25 05:10 Labs: Lab Results 04/02/25 04/02/25 04/03/25 Range/Units 14:55 15:40 05:10 WBC 6.4 6.4 (4.5-11.0) X10^3/uL RBC 4.58 4.32 L (4.5-5.9) X10^6/uL Hgb 14.5 13.6 (13.5-17.5) g/dL Hct 42.4 40.1 L (41-53) % MCV 92.5 92.9 (80-100) fL MCH 31.7 31.4 (26-34) PG MCHC 34.3 33.8 (30-36) % RDW 13.9 14.1 (11.6-14.8) % Plt Count 270 266 (150-400) X10^3/uL Neut % (Auto) 63.8 66.4 (50-75) % Lymph % (Auto) 19.8 L 19.5 L (25-40) % [place] % (Auto) 11.2 10.8 (3-14) % Eos % (Auto) 4.7 H 2.8 (2-4) % Baso % (Auto) 0.5 0.5 (0-2) % Neut # (Auto) 4100 4300 (5107-4126) /uL Lymph # (Auto) 1300 1200 (2174-3502) /uL [place] # (Auto) 700 700 (0-900) /uL Eos # (Auto) 300 200 (0-450) /uL Baso # (Auto) 0 0 (0-100) /uL D-Dimer 957 H (<500) ng/ml Sodium 136 L 137 (137-145) mmol/L Potassium 4.0 3.9 (3.4-5.1) mmol/L Chloride 106 104 (98-107) mmol/L Carbon Dioxide 23 26 (22-32) mmol/L BUN 13 15 (9-20) mg/dL Creatinine 0.70 0.72 (0.66-1.25) mg/dL Estimated GFR > 60 > 60 (>60) mL/min BUN/Creatinine Ratio 18.6 20.8 (6-22) Glucose 125 H 110 H (70-99) mg/dL Calcium 8.7 8.4 (8.4-10.2) mg/dL Total Bilirubin 0.7 (0.2-1.3) mg/dL AST 39 (17-59) IU/L ALT 34 (<50) IU/L Alkaline Phosphatase 98 (38-126) U/L Total Creatine Kinase 163 (55-170) U/L Troponin I < 0.012 (0.01-0.034) ng/mL NT-Pro-B Natriuret Pep 164 H (<125) pg/mL Total Protein 7.3 (6.3-8.2) g/dL Albumin 4.1 (3.5-5.0) g/dL Globulin 3.2 (1.7-4.1) g/dL Albumin/Globulin Ratio 1.3 (1.0-2.8) Lipase 88 (23-300) U/L Urine Color Yellow Urine Appearance Clear Urine pH 6.0 (4.5-8.0) Ur Specific [place] 1.010 (1.000-1.035) Urine Protein Negative (Negative) Urine Glucose (UA) Negative (Negative) g/dL Urine Ketones Negative (NEGATIVE) Urine Occult Blood Negative (Negative) Urine Nitrate Negative (Negative) Urine Bilirubin Negative (NEGATIVE) Urine Urobilinogen 1.0 (0.2) E.U./dL Ur Leukocyte Esterase Negative (NEGATIVE) Urine RBC 0-1/hpf (0-5/HPF) Urine WBC 0-1/hpf (0-5/HPF) Ur Squamous Epith Cells 0-1 /hpf (0-5/HPF) Urine Bacteria Occasional (0-1) (None) Ur Culture Indicated? Cult not indicated Vol Urine Centrifuged 10ml (spun) 04/04/25 Range/Units 04:00 WBC 8.4 (4.5-11.0) X10^3/uL RBC 4.27 L (4.5-5.9) X10^6/uL Hgb 13.4 L (13.5-17.5) g/dL Hct 39.7 L (41-53) % MCV 92.9 (80-100) fL MCH 31.4 (26-34) PG MCHC 33.8 (30-36) % RDW 14.0 (11.6-14.8) % Plt Count 257 (150-400) X10^3/uL Neut % (Auto) 76.1 H (50-75) % Lymph % (Auto) 11.5 L (25-40) % [place] % (Auto) 9.0 (3-14) % Eos % (Auto) 2.4 (2-4) % Baso % (Auto) 1.0 (0-2) % Neut # (Auto) 6400 (3084-3130) /uL Lymph # (Auto) 1000 L (5573-6194) /uL [place] # (Auto) 800 (0-900) /uL Eos # (Auto) 200 (0-450) /uL Baso # (Auto) 100 (0-100) /uL D-Dimer (<500) ng/ml Sodium (137-145) mmol/L Potassium (3.4-5.1) mmol/L Chloride (98-107) mmol/L Carbon Dioxide (22-32) mmol/L BUN (9-20) mg/dL Creatinine (0.66-1.25) mg/dL Estimated GFR (>60) mL/min BUN/Creatinine Ratio (6-22) Glucose (70-99) mg/dL Calcium (8.4-10.2) mg/dL Total Bilirubin (0.2-1.3) mg/dL AST (17-59) IU/L ALT (<50) IU/L Alkaline Phosphatase (38-126) U/L Total Creatine Kinase (55-170) U/L Troponin I (0.01-0.034) ng/mL NT-Pro-B Natriuret Pep (<125) pg/mL Total Protein (6.3-8.2) g/dL Albumin (3.5-5.0) g/dL Globulin (1.7-4.1) g/dL Albumin/Globulin Ratio (1.0-2.8) Lipase (23-300) U/L Urine Color Urine Appearance Urine pH (4.5-8.0) Ur Specific [place] (1.000-1.035) Urine Protein (Negative) Urine Glucose (UA) (Negative) g/dL Urine Ketones (NEGATIVE) Urine Occult Blood (Negative) Urine Nitrate (Negative) Urine Bilirubin (NEGATIVE) Urine Urobilinogen (0.2) E.U./dL Ur Leukocyte Esterase (NEGATIVE) Urine RBC (0-5/HPF) Urine WBC (0-5/HPF) Ur Squamous Epith Cells (0-5/HPF) Urine Bacteria (None) Ur Culture Indicated? Vol Urine Centrifuged MDM Narrative Medical decision making narrative: 74-year-old male with past medical history hyperlipidemia, hypertension, GERD, depression presents to the ED for 1-2 months of right upper quadrant pain. Concern for biliary etiology versus kidney stones versus ACS versus other intra-abdominal pathology versus other. Will obtain labs, troponin, BNP, EKG, UA, ultrasound abdomen. EKG is normal sinus rhythm with a right bundle branch block. No acute ST-T changes. UA is unremarkable. Labs unremarkable. White count 6.4. Troponin and BNP within normal limits. Ultrasound abdomen with the gallbladder demonstrating a normal sonographic appearance. No biliary dilatation is seen. Patient continues to be in significant pain after Toradol. Patient is given a dose of morphine. D-dimer was obtained and which was elevated to 957. CT angio with PE PE protocol and CT abdomen pelvis with contrast ordered. CTA is negative for pulmonary embolus. There is heavy coronary artery calcification. Borderline prominent and shotty lymph nodes are present in the lower neck, mediastinum, hilar region and right axilla. Correlate with any history of lymphoma. These could be reactive and correlation with any prior imaging studies is recommended. CT abdomen pelvis shows mild hepatic steatosis. Questionable mass versus decompressed mucosa at the gastric antrum. Correlate clinically and consider upper GI with barium. Incidental nonobstructing left kidney stone. Dr. Thrasher from surgery was consulted. He graciously accepts to do a upper endoscopy tomorrow. He recommends admitting patient to the hospitalist. Dr. Burton, hospitalist was consulted. He graciously accept the patient for admission for pain control and upper endoscopy. Discussed findings and disposition with patient. He is agreeable with the plan. Patient admitted Medical records reviewed: Yes <Betina Doyle DO - Last Filed: 04/08/25 23:45> Lab Data Labs: Lab Results 04/02/25 04/02/25 04/03/25 Range/Units 14:55 15:40 05:10 WBC 6.4 6.4 (4.5-11.0) X10^3/uL RBC 4.58 4.32 L (4.5-5.9) X10^6/uL Hgb 14.5 13.6 (13.5-17.5) g/dL Hct 42.4 40.1 L (41-53) % MCV 92.5 92.9 (80-100) fL MCH 31.7 31.4 (26-34) PG MCHC 34.3 33.8 (30-36) % RDW 13.9 14.1 (11.6-14.8) % Plt Count 270 266 (150-400) X10^3/uL Neut % (Auto) 63.8 66.4 (50-75) % Lymph % (Auto) 19.8 L 19.5 L (25-40) % [place] % (Auto) 11.2 10.8 (3-14) % Eos % (Auto) 4.7 H 2.8 (2-4) % Baso % (Auto) 0.5 0.5 (0-2) % Neut # (Auto) 4100 4300 (7691-9180) /uL Lymph # (Auto) 1300 1200 (7384-5987) /uL [place] # (Auto) 700 700 (0-900) /uL Eos # (Auto) 300 200 (0-450) /uL Baso # (Auto) 0 0 (0-100) /uL D-Dimer 957 H (<500) ng/ml Sodium 136 L 137 (137-145) mmol/L Potassium 4.0 3.9 (3.4-5.1) mmol/L Chloride 106 104 (98-107) mmol/L Carbon Dioxide 23 26 (22-32) mmol/L BUN 13 15 (9-20) mg/dL Creatinine 0.70 0.72 (0.66-1.25) mg/dL Estimated GFR > 60 > 60 (>60) mL/min BUN/Creatinine Ratio 18.6 20.8 (6-22) Glucose 125 H 110 H (70-99) mg/dL Calcium 8.7 8.4 (8.4-10.2) mg/dL Total Bilirubin 0.7 (0.2-1.3) mg/dL AST 39 (17-59) IU/L ALT 34 (<50) IU/L Alkaline Phosphatase 98 (38-126) U/L Total Creatine Kinase 163 (55-170) U/L Troponin I < 0.012 (0.01-0.034) ng/mL NT-Pro-B Natriuret Pep 164 H (<125) pg/mL Total Protein 7.3 (6.3-8.2) g/dL Albumin 4.1 (3.5-5.0) g/dL Globulin 3.2 (1.7-4.1) g/dL Albumin/Globulin Ratio 1.3 (1.0-2.8) Lipase 88 (23-300) U/L Urine Color Yellow Urine Appearance Clear Urine pH 6.0 (4.5-8.0) Ur Specific [place] 1.010 (1.000-1.035) Urine Protein Negative (Negative) Urine Glucose (UA) Negative (Negative) g/dL Urine Ketones Negative (NEGATIVE) Urine Occult Blood Negative (Negative) Urine Nitrate Negative (Negative) Urine Bilirubin Negative (NEGATIVE) Urine Urobilinogen 1.0 (0.2) E.U./dL Ur Leukocyte Esterase Negative (NEGATIVE) Urine RBC 0-1/hpf (0-5/HPF) Urine WBC 0-1/hpf (0-5/HPF) Ur Squamous Epith Cells 0-1 /hpf (0-5/HPF) Urine Bacteria Occasional (0-1) (None) Ur Culture Indicated? Cult not indicated Vol Urine Centrifuged 10ml (spun) 04/04/25 Range/Units 04:00 WBC 8.4 (4.5-11.0) X10^3/uL RBC 4.27 L (4.5-5.9) X10^6/uL Hgb 13.4 L (13.5-17.5) g/dL Hct 39.7 L (41-53) % MCV 92.9 (80-100) fL MCH 31.4 (26-34) PG MCHC 33.8 (30-36) % RDW 14.0 (11.6-14.8) % Plt Count 257 (150-400) X10^3/uL Neut % (Auto) 76.1 H (50-75) % Lymph % (Auto) 11.5 L (25-40) % [place] % (Auto) 9.0 (3-14) % Eos % (Auto) 2.4 (2-4) % Baso % (Auto) 1.0 (0-2) % Neut # (Auto) 6400 (9053-7566) /uL Lymph # (Auto) 1000 L ([id number]) /uL [place] # (Auto) 800 (0-900) /uL Eos # (Auto) 200 (0-450) /uL Baso # (Auto) 100 (0-100) /uL D-Dimer (<500) ng/ml Sodium (137-145) mmol/L Potassium (3.4-5.1) mmol/L Chloride (98-107) mmol/L Carbon Dioxide (22-32) mmol/L BUN (9-20) mg/dL Creatinine (0.66-1.25) mg/dL Estimated GFR (>60) mL/min BUN/Creatinine Ratio (6-22) Glucose (70-99) mg/dL Calcium (8.4-10.2) mg/dL Total Bilirubin (0.2-1.3) mg/dL AST (17-59) IU/L ALT (<50) IU/L Alkaline Phosphatase (38-126) U/L Total Creatine Kinase (55-170) U/L Troponin I (0.01-0.034) ng/mL NT-Pro-B Natriuret Pep (<125) pg/mL Total Protein (6.3-8.2) g/dL Albumin (3.5-5.0) g/dL Globulin (1.7-4.1) g/dL Albumin/Globulin Ratio (1.0-2.8) Lipase (23-300) U/L Urine Color Urine Appearance Urine pH (4.5-8.0) Ur Specific [place] (1.000-1.035) Urine Protein (Negative) Urine Glucose (UA) (Negative) g/dL Urine Ketones (NEGATIVE) Urine Occult Blood (Negative) Urine Nitrate (Negative) Urine Bilirubin (NEGATIVE) Urine Urobilinogen (0.2) E.U./dL Ur Leukocyte Esterase (NEGATIVE) Urine RBC (0-5/HPF) Urine WBC (0-5/HPF) Ur Squamous Epith Cells (0-5/HPF) Urine Bacteria (None) Ur Culture Indicated? Vol Urine Centrifuged Discharge Plan Departure Patient Disposition: Admitted as Observation Clinical Impression: Abdominal pain Qualifiers: Abdominal location: upper abdomen, unspecified Qualified Code(s): R10.10 - Upper abdominal pain, unspecified Admit Date/Time: 04/04/25 10:14 Admit Provider: Robert Burton ED Sign-out <Betina Doyle DO - Last Filed: 04/08/25 23:45> Cosign ED Attending Cosignature Attestation: I was available for consultation.
[2025-04-02] MEDS: KETOROLAC 30 MG/ML VIAL 15 MG IV (16:04)
[2025-04-02 16:06] LABS: Appearance Urine UA CLEAR; Bilirubin Urine UA NEGATIVE (NEGATIVE); Color Urine UA YELLOW; Glucose Urine UA NEGATIVE (Negative); Ketones Urine UA NEGATIVE (NEGATIVE); Leukocyte Esterase Urine UA NEGATIVE (NEGATIVE); Nitrite Urine UA NEGATIVE (Negative); Occult Blood Urine UA NEGATIVE (Negative); Protein Urine UA NEGATIVE (Negative)
[2025-04-02 16:13] LABS: Bacteria Urine Occasional (0-1); Culture Indicated Urine Cult Not Indicated; RBC Urine 0-1/HPF (0-5/HPF); Squamous Epithelial Cell Urine 0-1 /HPF (0-5/HPF); Urine Volume 10mL (spun); WBC Urine 0-1/HPF (0-5/HPF)
[2025-04-02 16:28] LABS: D Dimer 957 ng/ml (<500)
[2025-04-02 16:34] LABS: Creatine Kinase 163 U/L (55-170)
--- NOTE | 2025-04-02 16:36 | DI.CT.S_ITS ---
PROCEDURE: CT ANGIO CHEST PE PROTOCOL INDICATIONS: R chest pain TECHNIQUE: After the administration of intravenous contrast, 2 mm thick sections acquired from the pulmonary apices to the posterior costophrenic angles. 3-dimensional maximum intensity projection (MIP) coronal and sagittal reformats were then acquired through the thorax. For radiation dose reduction, the following was used: automated exposure control, adjustment of mA and/or kV according to patient size. COMPARISON: None. FINDINGS: Image quality: Diagnostic. Pulmonary arteries: Pulmonary arteries are normal in size, and demonstrate no intraluminal filling defects to suggest central pulmonary embolism. Lower Neck: Several tiny lower cervical chain lymph nodes are present bilaterally. Thyroid: Normal CT appearance. Axillae: Shotty axillary nodes, right greater than left. No bulky adenopathy. Chest Wall: Unremarkable. Bones: There is a chronic, healed right lateral mid rib fracture. Surgical changes right shoulder reverse arthroplasty are present. Lungs and Pleura: Central and peripheral airways are normal without bronchial wall thickening or bronchiectasis. Juxta fissural lymph nodes in the right middle lobe. No suspicious nodules, masses, ground-glass opacities, or consolidations. No pleural effusion or pleural calcification. No pneumothorax. Heart: The heart is mildly enlarged. Heavy coronary artery calcification. Trace pericardial fluid. Thoracic Vessels: No aortic aneurysm. Mediastinum and Jing: Several borderline right paratracheal lymph nodes are present, one of the largest measures 1.0 cm short axis. AP window, subcarinal, and bilateral hilar adenopathy is also but borderline. Esophagus: No wall thickening. No hiatal hernia. Upper Abdomen: Visualized upper abdomen solid organs and bowel loops appear normal. IMPRESSION: No pulmonary embolus. Heavy coronary artery calcification. Borderline prominent and shotty lymph nodes are present in the lower neck, mediastinum, jing region, and right axilla. Correlate with any history of lymphoma. These could be reactive and correlation with any prior imaging studies is recommended. Dictated by: Prema Dejesus M.D. on 04/02/2025 at 17:30 Approved by: Prema Dejesus M.D. on 04/02/2025 at 17:38
--- NOTE | 2025-04-02 16:37 | DI.CT.S_ITS ---
PROCEDURE: CT ABDOMEN PELVIS W CON INDICATIONS: RUQ, right chest pain TECHNIQUE: After the administration of intravenous contrast, axial sections acquired from the lung bases to the pubic symphysis. Coronal and sagittal reformats were performed. For radiation dose reduction, the following was used: automated exposure control, adjustment of mA and/or kV according to patient size. COMPARISON: None. FINDINGS: Image quality: Diagnostic. Lower Chest: No significant findings. ABDOMEN: Liver: Mild diffuse hepatic steatosis. No enhancing mass. Gallbladder: No wall thickening or calcified stones. Biliary ducts: No biliary dilation. Pancreas: Normal size and morphology without visible ductal dilatation or inflammation. Spleen: Size is within normal limits. Adrenal Glands: No adrenal nodules. Kidneys and Ureters: Symmetric enhancement. Punctate nonobstructing left lower pole intrarenal calculus. Exophytic cyst arising from the anterior midpole right kidney. No hydronephrosis or solid mass. No hydroureter is a or ureteral calcification. Stomach and Bowel: The stomach is decompressed at the distal gastric antrum and there is questionable mucosal redundancy versus mass. Small bowel loops and colon are within normal limits. Normal appendix. Peritoneum: No abnormal intraperitoneal fluid. No free air. Ventral Wall: No significant ventral hernia. Abdominal Nodes: No retroperitoneal or mesenteric adenopathy by size criteria. Vessels: Aorta and inferior vena cava are normal in size. Tiny saccular abdominal aortic ectasia left lateral at the mid aortic level. The portal vein is patent. PELVIS: Pelvic Organs: Moderate prostatomegaly. Bladder: No stones or wall thickening. Pelvic Nodes: No enlarged lymph nodes. Miscellaneous: No inguinal hernias or soft tissue lesions. Bones: No aggressive osseous abnormality. Right hip arthroplasty. Diffuse demineralization. IMPRESSION: Mild hepatic steatosis. Questionable mass versus decompressed mucosa at the gastric antrum. Correlate clinically and consider upper GI with barium. Incidental nonobstructing left kidney stone. Dictated by: Prema Dejesus M.D. on 04/02/2025 at 17:52 Approved by: Prema Dejesus M.D. on 04/02/2025 at 17:59
[2025-04-02 16:47] LABS: NT-proBNP (BNP-Adult 18+) 164 pg/mL (<125); Troponin I < 0.012 ng/mL (0.01-0.034)
[2025-04-02] MEDS: MORPHINE 4 MG/ML INJ IV (16:48)
[2025-04-02 16:50] VITALS: BP 163/83; PULSE 68; RESP 22; O2SAT 98
[2025-04-02] MEDS: FAMOTIDINE 20 MG/2 ML VIAL 40 MG IV (17:08)
--- NOTE | 2025-04-02 17:51 | PC.NURSE ---
I checked with this patient upon return from imaging roughly 30 minutes post administration and rated his pain at a 4/10. Just checked with patient again and patient has 9/10 and informed Alberta Biggs.
[2025-04-02] MEDS: HYDROMORPHONE 1 MG INJ IV (17:57)
[2025-04-02 18:00] VITALS: BP 158/89; PULSE 62; RESP 28; O2SAT 99
[2025-04-02 18:47] VITALS: BMI 27.5
[2025-04-02 18:52] VITALS: BP 162/82; PULSE 63; RESP 23; O2SAT 95
[2025-04-02] MEDS: SODIUM CHLORIDE 0.9% 1,000 ML 100 ML IV (19:44)
[2025-04-02] MEDS: HYDROMORPHONE 0.5 MG INJ IV ×2 (19:44→23:05)
[2025-04-03] VITALS (17 sets, daily range): BP systolic 98–176; BP diastolic 63–89; PULSE 60–84; RESP 10–21; TEMP 35.9–36.6; O2SAT 95–100
--- NOTE | 2025-04-03 | PATH_ITS ---
[facility] Accession Number: [id number] No. of containers..02 Tissue . 01 Material submitted: . PART A: gastrointestinal site - GASTRIC POLYPS PART B: gastrointestinal site - GASTRIC POLYPS (SNARE) . 01 Diagnosis: A. GASTRIC POLYPS, BIOPSIES: Fundic gland polyps. No evidence of Helicobacter organisms on H/E stain. Negative for intestinal metaplasia. Negative for dysplasia and malignancy. . B. GASTRIC POLYPS, POLYPECTOMIES: Fundic gland polyps. No evidence of Helicobacter organisms on H/E stain. Negative for intestinal metaplasia. Negative for dysplasia and malignancy. . [facility] 04/06/2025 1440 Local . 01 Electronically signed: . Esteban Villanueva MD, PhD, Pathologist NPI- [id number] . 01 Gross description: . A. Received in formalin with two patient identifiers and 1. Gastric polyps, are four harman soft tissue fragments all measuring 0.3 cm in greatest dimension. Submitted in cassette A1. B. Receoved in formalin with two patient identifiers and 2. Gastric polyp snare, are two harman to brown soft tissue fragments measuring 1.4 x 0.9 x 0.8 cm and 0.9 x 0.5 x 0.5 cm. The larger specimen inked blue, sectioned, and submitted entirely in cassette B1. The second fragment is inked green, bisected, and also submitted entirely in cassette B1. ([id number]) /JENI 04/04/20252008 Local . 01 Pathologist provided ICD-10: K31.7 . 01 CPT . 250558, [id number] Specimen Comment: A courtesy copy of this report has been sent to [facility] Pathology Performed at: [address] [address], [place], [place] [id number] MD Diaz Smith MD Phone: [phone]
[2025-04-03] MEDS: HYDROMORPHONE 0.5 MG INJ IV ×4 (00:54→18:17)
--- NOTE | 2025-04-03 02:52 | P.HP_ITS ---
History of Present Illness History of Present Illness Chief complaint: Rt Rib pain, Nausea Narrative: 74-year-old male with past medical history of GERD, depression, hypertension, hyperlipidemia presents with complaint of right upper quadrant abdominal pain. Per the patient's report, the patient recently was seen in his PCP clinic and was prescribed naproxen and suspicion for musculoskeletal etiology and causing his pain. The patient states that his pain is right sided lower rib versus upper quadrant abdominal pain. Despite taking naproxen at home patient continued to have significant abdominal pain. The patient admitted to have some nausea but denies any vomiting. The patient also denies any fever, chills, GI bleed, diarrhea, chest pain, shortness of breath or syncope. In our emergency room, the patient was hemodynamically stable. Labs were relatively benign including lipase LFTs. Troponin was also normal with EKG showing no signs of acute ischemia. Patient did require IV pain medication. CT angio of the chest shows no PE. CT abdomen and pelvis however shows questionable mass versus decompressed mucosa in the gastric antrum. General surgery was consulted and recommended that we admit the patient for pain control and n.p.o. for possible upper endoscopy in the morning. [facility] Medical History POLST (Physician Orders for Life-Sustaining Treatment) Encounter for annual wellness exam in Medicare patient HLD (hyperlipidemia) Kidney stones Insomnia Depression, unspecified Surgical History H/O vasectomy Hx of lithotripsy History of surgery History of total right hip replacement (~2015) S/P cervical spinal fusion (2011) Social History household members: spouse and other Smoking Status: Former smoker alcohol intake: current Meds Home Medications and Allergies Home Medications Medication Instructions Recorded Confirmed Type lorazepam 0.5 mg tablet 0.5 mg PO BEDTIME PRN Sleep 06/01/22 04/02/25 History atorvastatin 80 mg tablet (Lipitor) 80 mg PO BEDTIME cholesterol #90 09/20/24 04/02/25 Rx tabs losartan 50 mg tablet 50 mg PO DAILY #90 tabs 09/20/24 04/02/25 Rx pantoprazole 40 mg tablet,delayed 40 mg PO QAM #90 tabs 09/20/24 04/02/25 Rx release ezetimibe 10 mg tablet (Zetia) 10 mg PO DAILY #100 tabs 09/21/24 04/02/25 Rx hydrocodone 5 mg-acetaminophen 325 1 tab PO Q6H PRN pain #30 tabs 02/22/25 04/02/25 Rx mg tablet naproxen 500 mg tablet 500 mg PO BID PRN pain #60 tabs 02/22/25 04/02/25 Rx Allergies Allergy/AdvReac Type Severity Reaction Status Date / Time pollen extracts Allergy Mild Verified 04/02/25 14:58 Review of Systems Review of Systems ROS: Yes All systems reviewed with the patient and are negative except as otherwise documented Exam Vital Signs (past 8 hours): - 04/03/25 01:22 Temperature 96.8 F L Pulse Rate 60 Respiratory Rate 16 Blood Pressure 130/63 Pulse Oximetry 96 Oxygen Flow Rate 0 Oxygen Delivery Method Room Air Oxygen Flow Rate 0 Narrative Exam Narrative: Physical Exam: GENERAL: The patient is not in any acute distressed. Awake and alert. HEENT: Nonicteric sclerae, PERRLA, EOMI. Oropharynx clear. Moist mucous membranes. Conjunctivae appear well perfused. HEART: Regular rate and rhythm without murmurs. No lower extremities edema. LUNGS: Clear to auscultation bilaterally. No wheezing, crackles or rhonchi ABDOMEN: Soft, positive bowel sounds, nontender. SKIN: No rash, no excessive bruising, petechiae, or purpura. NEUROLOGIC: AxO x 3. Cranial nerves II-XII intact without motor/sensory deficit. Objective Labs 04/02/25 14:55 04/02/25 14:55 Labs: Laboratory Results - last 24 hr 04/02/25 04/02/25 14:55 15:40 WBC 6.4 RBC 4.58 Hgb 14.5 Hct 42.4 MCV 92.5 MCH 31.7 MCHC 34.3 RDW 13.9 Plt Count 270 Neut % (Auto) 63.8 Lymph % (Auto) 19.8 L [place] % (Auto) 11.2 Eos % (Auto) 4.7 H Baso % (Auto) 0.5 Neut # (Auto) 4100 Lymph # (Auto) 1300 [place] # (Auto) 700 Eos # (Auto) 300 Baso # (Auto) 0 D-Dimer 957 H Sodium 136 L Potassium 4.0 Chloride 106 Carbon Dioxide 23 BUN 13 Creatinine 0.70 Estimated GFR > 60 BUN/Creatinine Ratio 18.6 Glucose 125 H Calcium 8.7 Total Bilirubin 0.7 AST 39 ALT 34 Alkaline Phosphatase 98 Total Creatine Kinase 163 Troponin I < 0.012 NT-Pro-B Natriuret Pep 164 H Total Protein 7.3 Albumin 4.1 Globulin 3.2 Albumin/Globulin Ratio 1.3 Lipase 88 Urine Color Yellow Urine Appearance Clear Urine pH 6.0 Ur Specific [place] 1.010 Urine Protein Negative Urine Glucose (UA) Negative Urine Ketones Negative Urine Occult Blood Negative Urine Nitrate Negative Urine Bilirubin Negative Urine Urobilinogen 1.0 Ur Leukocyte Esterase Negative Urine RBC 0-1/hpf Urine WBC 0-1/hpf Ur Squamous Epith Cells 0-1 /hpf Urine Bacteria Occasional (0-1) Ur Culture Indicated? Cult not indicated Vol Urine Centrifuged 10ml (spun) Assessment & Plan Assessment & Plan narrative: Abdominal pain with possible gastric mass. Admit the patient to medical observation. NPO. IV fluid. Pain control. Antiemetics. Appreciate general surgery consult and management for possible upper endoscopy in the morning. GERD. Continue IV PPI. Hypertension. Monitor blood pressure and resume home medication accordingly. Hyperlipidemia. Resume home statin. DVT prophylaxis SCDs due to observational status. CODE STATUS DNR/DNI Disposition likely home in 1 to 2 days. - As the provider of this telehealth evaluation, requested by the patient's evaluating physician, I attest that I introduced myself to the patient, provided my credentials and determined that telemedicine via a real-time, 2 way interactive audio and video platform is an appropriate and effective means of providing this service. - I reviewed the patient's chart and had a discussion with the member of the patient's treatment team. - The patient and I mutually agreed with continuation of this evaluation via telemedicine. The patient consented for the telemedicine evaluation. - This virtual encounter was taken place from [place] by Dr. Juan Nelson. The patient was evaluated at [facility]. The encounter was approximately 35 minutes. The nurse was present during the entire time of the encounter and was able to move the stethoscope in appropriate directions. Time-Based Coding :: [TOTAL MINUTES] spent with patient and on the chart (including review of chart, obtaining history, exam, reviewing outside data, placing orders, documenting exam and treatment plan, and counseling patient) on [DATE]. Quality VTE Deep Vein Thrombosis/Pulmonary Embolism Present on Admission: No
[2025-04-03 05:25] LABS: Add Manual Diff / Slide Review NO; Basophils Absolute Auto 0 /uL (0-100); Basophils Percent Auto 0.5 % (0-2); Eosinophils Absolute Auto 200 /uL (0-450); Eosinophils Percent Auto 2.8 % (2-4); Hematocrit 40.1 % (41-53); Hemoglobin 13.6 g/dL (13.5-17.5); Lymphocytes Absolute Auto 1200 /uL (1100-4500); Lymphocytes Percent Auto 19.5 % (25-40); Mean Corpuscular HGB Conc 33.8 % (30-36); Mean Corpuscular Hemoglobin 31.4 PG (26-34); Mean Corpuscular Volume 92.9 fL (80-100); Monocytes Absolute Auto 700 /uL (0-900); Monocytes Percent Auto 10.8 % (3-14); Neutrophils Absolute Auto 4300 /uL (1500-7000); Neutrophils Percent Auto 66.4 % (50-75); Platelet Count 266 X10^3/uL (150-400); Red Blood Cell Count 4.32 X10^6/uL (4.5-5.9); Red Cell Distribution Width 14.1 % (11.6-14.8); White Blood Cell Count 6.4 X10^3/uL (4.5-11.0)
[2025-04-03 05:34] LABS: BUN Creatinine Ratio 20.8 (6-22); Blood Urea Nitrogen 15 mg/dL (9-20); Calcium 8.4 mg/dL (8.4-10.2); Carbon Dioxide 26 mmol/L (22-32); Chloride 104 mmol/L (98-107); Estimated Glomerular Filt Rate > 60 mL/min (>60); Glucose 110 mg/dL (70-99); HEMOLYSIS < 15 (0-50); Potassium 3.9 mmol/L (3.4-5.1); Sodium 137 mmol/L (137-145)
[2025-04-03] MEDS: ONDANSETRON 4 MG/2 ML INJ IV ×2 (06:17→14:51)
[2025-04-03] MEDS: SODIUM CHLORIDE 0.9% 1,000 ML 100 ML IV (06:30)
--- NOTE | 2025-04-03 07:33 | PM.PN.1 ---
Subjective Subjective Interval history: Summary: 74-year-old male with past medical history of GERD, depression, hypertension, hyperlipidemia presents with complaint of right upper quadrant abdominal pain. Per the patient's report, the patient recently was seen in his PCP clinic and was prescribed naproxen and suspicion for musculoskeletal etiology and causing his pain. The patient states that his pain is right sided lower rib versus upper quadrant abdominal pain. Despite taking naproxen at home patient continued to have significant abdominal pain. The patient admitted to have some nausea but denies any vomiting. The patient also denies any fever, chills, GI bleed, diarrhea, chest pain, shortness of breath or syncope. In our emergency room, the patient was hemodynamically stable. Labs were relatively benign including lipase LFTs. Troponin was also normal with EKG showing no signs of acute ischemia. Patient did require IV pain medication. CT angio of the chest shows no PE. CT abdomen and pelvis however shows questionable mass versus decompressed mucosa in the gastric antrum. General surgery was consulted and recommended that we admit the patient for pain control and n.p.o. for possible upper endoscopy in the morning. S: Right-sided ribcage and thorax pain improved with 1 mg of Dilaudid. This has been going on for several weeks. No associated diaphoresis. The pain increases with movement, but is not pleuritic. Denies any neuropathic features. Exam Vital Signs (past 8 hours): - 04/03/25 01:22 Temperature 96.8 F L Pulse Rate 60 Respiratory Rate 16 Blood Pressure 130/63 Pulse Oximetry 96 Oxygen Flow Rate 0 Oxygen Delivery Method Room Air Oxygen Flow Rate 0 Narrative Exam Narrative: NAD, alert and oriented. Fluent speech. Mildly anxious. Lungs are clear, normal rate and effort. Heart is regular, no murmur gallop or rub. Abdomen is soft, non distended. Extremities are free of edema. Right anterior thorax is nontender to palpation. Objective Imaging Multiple studies: : Radiologist's impression: Abdomen and pelvis CT: Mild hepatic steatosis. Questionable mass versus decompressed mucosa at the gastric antrum. Correlate clinically and consider upper GI with barium. Incidental nonobstructing left kidney stone. Chest CTA: No pulmonary embolus. Heavy coronary artery calcification. Borderline prominent and shotty lymph nodes are present in the lower neck, mediastinum, [place] region, and right axilla. Correlate with any history of lymphoma. These Abdominal ultrasound: IMPRESSION: The gallbladder demonstrates a normal sonographic appearance. No biliary dilatation is seen. Labs 04/03/25 05:10 04/03/25 05:10 Labs: Laboratory Results - last 24 hr 04/02/25 04/02/25 04/03/25 14:55 15:40 05:10 WBC 6.4 6.4 RBC 4.58 4.32 L Hgb 14.5 13.6 Hct 42.4 40.1 L MCV 92.5 92.9 MCH 31.7 31.4 MCHC 34.3 33.8 RDW 13.9 14.1 Plt Count 270 266 Neut % (Auto) 63.8 66.4 Lymph % (Auto) 19.8 L 19.5 L [place] % (Auto) 11.2 10.8 Eos % (Auto) 4.7 H 2.8 Baso % (Auto) 0.5 0.5 Neut # (Auto) 4100 4300 Lymph # (Auto) 1300 1200 [place] # (Auto) 700 700 Eos # (Auto) 300 200 Baso # (Auto) 0 0 D-Dimer 957 H Sodium 136 L 137 Potassium 4.0 3.9 Chloride 106 104 Carbon Dioxide 23 26 BUN 13 15 Creatinine 0.70 0.72 Estimated GFR > 60 > 60 BUN/Creatinine Ratio 18.6 20.8 Glucose 125 H 110 H Calcium 8.7 8.4 Total Bilirubin 0.7 AST 39 ALT 34 Alkaline Phosphatase 98 Total Creatine Kinase 163 Troponin I < 0.012 NT-Pro-B Natriuret Pep 164 H Total Protein 7.3 Albumin 4.1 Globulin 3.2 Albumin/Globulin Ratio 1.3 Lipase 88 Urine Color Yellow Urine Appearance Clear Urine pH 6.0 Ur Specific [place] 1.010 Urine Protein Negative Urine Glucose (UA) Negative Urine Ketones Negative Urine Occult Blood Negative Urine Nitrate Negative Urine Bilirubin Negative Urine Urobilinogen 1.0 Ur Leukocyte Esterase Negative Urine RBC 0-1/hpf Urine WBC 0-1/hpf Ur Squamous Epith Cells 0-1 /hpf Urine Bacteria Occasional (0-1) Ur Culture Indicated? Cult not indicated Vol Urine Centrifuged 10ml (spun) PFSH Medical History POLST (Physician Orders for Life-Sustaining Treatment) Encounter for annual wellness exam in Medicare patient HLD (hyperlipidemia) Kidney stones Insomnia Depression, unspecified Surgical History H/O vasectomy Hx of lithotripsy History of surgery History of total right hip replacement (~2015) S/P cervical spinal fusion (2011) Social History household members: spouse and other Smoking Status: Former smoker alcohol intake: current Assessment & Plan Assessment & Plan narrative: 1. Abdominal pain with possible gastric mass. Admit the patient to medical observation. NPO. IV fluid. Pain control. Antiemetics. Appreciate general surgery consult and management for possible upper endoscopy in the morning. 2. GERD. Continue IV PPI. 3. Hypertension. Monitor blood pressure and resume home medication accordingly. 4. Hyperlipidemia. Resume home statin. 5. Right anterior chest wall pain, present on admission and active. PLAN: -endoscopy for abnormal gastric findings on CT scan this a.m.. -continue pain control, add oxycodone Q 3 hours. -start MiraLax b.i.d. to prevent constipation -ambulate. DVT prophylaxis SCDs due to observational status. CODE STATUS DNR/DNI Disposition likely home in 1 to 2 days. Time-Based Coding :: [TOTAL MINUTES] spent with patient and on the chart (including review of chart, obtaining history, exam, reviewing outside data, placing orders, documenting exam and treatment plan, and counseling patient) on [DATE]. Quality VTE Deep Vein Thrombosis/Pulmonary Embolism Present on Admission: No
[2025-04-03] MEDS: HYDROMORPHONE 1 MG INJ IV ×2 (07:59→10:03)
--- NOTE | 2025-04-03 08:32 | P.CONS_ITS ---
History of Present Illness Consult details Chief complaint: Rt Rib pain, Nausea Narrative: 74-year-old male with a two-month history of pain in the right mid axillary line over the lower ribs. There is no history of trauma. At the beginning of that timeframe the patient was working on his car and subsequently noted pain. It has gotten progressively worse. About a week ago it appeared to regis but has returned. Patient's indicates that he has been coughing. Presented to the ER where CTA demonstrated no evidence of PE. CT abdomen pelvis demonstrated equivocal findings at the gastric antrum potentially consistent with the mass. I am consulted to render a surgical opinion regarding possible upper endoscopy to clarify the issue of this gastric lesion. Meds Home Medications and Allergies Home Medications Medication Instructions Recorded Confirmed Type lorazepam 0.5 mg tablet 0.5 mg PO BEDTIME PRN Sleep 06/01/22 04/02/25 History atorvastatin 80 mg tablet (Lipitor) 80 mg PO BEDTIME cholesterol #90 09/20/24 04/02/25 Rx tabs losartan 50 mg tablet 50 mg PO DAILY #90 tabs 09/20/24 04/02/25 Rx pantoprazole 40 mg tablet,delayed 40 mg PO QAM #90 tabs 09/20/24 04/02/25 Rx release ezetimibe 10 mg tablet (Zetia) 10 mg PO DAILY #100 tabs 09/21/24 04/02/25 Rx hydrocodone 5 mg-acetaminophen 325 1 tab PO Q6H PRN pain #30 tabs 02/22/25 04/02/25 Rx mg tablet naproxen 500 mg tablet 500 mg PO BID PRN pain #60 tabs 02/22/25 04/02/25 Rx Allergies Allergy/AdvReac Type Severity Reaction Status Date / Time pollen extracts Allergy Mild Verified 04/02/25 14:58 Review of Systems Review of Systems Narrative: Comprehensive review of systems negative to direct questioning with the exception of the previously mentioned chronic conditions. Exam Vital Signs (past 8 hours): - 04/03/25 01:22 04/03/25 08:00 Temperature 96.8 F L 96.8 F L Pulse Rate 60 65 Respiratory Rate 16 18 Blood Pressure 130/63 133/72 Pulse Oximetry 96 98 Oxygen Flow Rate 0 Oxygen Delivery Method Room Air Oxygen Flow Rate 0 Narrative Exam Narrative: In general this is a well-nourished well-developed male alert and oriented x3 in mild distress. He is pain over his right ribcage in the mid axillary line. Head is normocephalic and atraumatic. Neck is supple. Back is without CVA or spinous process tenderness. There is point tenderness over the lower ribcage on the right in the mid axillary line. There is no crepitance. Lungs are clear to auscultation. Heart has a regular rate and rhythm with no murmur or gallop. Abdomen is soft and nontender with normal bowel sounds. There is no tenderness in the epigastrium or over the liver. Extremities manifests full range of motion. The point tenderness over the ribcage can be elicited. There is no reproduction of the pain with range of motion of the right upper extremity or movement against resistance. Neurological exam is grossly nonfocal. Objective Labs 04/03/25 05:10 04/03/25 05:10 Labs: Laboratory Results - last 24 hr 04/02/25 04/02/25 04/03/25 14:55 15:40 05:10 WBC 6.4 6.4 RBC 4.58 4.32 L Hgb 14.5 13.6 Hct 42.4 40.1 L MCV 92.5 92.9 MCH 31.7 31.4 MCHC 34.3 33.8 RDW 13.9 14.1 Plt Count 270 266 Neut % (Auto) 63.8 66.4 Lymph % (Auto) 19.8 L 19.5 L [place] % (Auto) 11.2 10.8 Eos % (Auto) 4.7 H 2.8 Baso % (Auto) 0.5 0.5 Neut # (Auto) 4100 4300 Lymph # (Auto) 1300 1200 [place] # (Auto) 700 700 Eos # (Auto) 300 200 Baso # (Auto) 0 0 D-Dimer 957 H Sodium 136 L 137 Potassium 4.0 3.9 Chloride 106 104 Carbon Dioxide 23 26 BUN 13 15 Creatinine 0.70 0.72 Estimated GFR > 60 > 60 BUN/Creatinine Ratio 18.6 20.8 Glucose 125 H 110 H Calcium 8.7 8.4 Total Bilirubin 0.7 AST 39 ALT 34 Alkaline Phosphatase 98 Total Creatine Kinase 163 Troponin I < 0.012 NT-Pro-B Natriuret Pep 164 H Total Protein 7.3 Albumin 4.1 Globulin 3.2 Albumin/Globulin Ratio 1.3 Lipase 88 Urine Color Yellow Urine Appearance Clear Urine pH 6.0 Ur Specific [place] 1.010 Urine Protein Negative Urine Glucose (UA) Negative Urine Ketones Negative Urine Occult Blood Negative Urine Nitrate Negative Urine Bilirubin Negative Urine Urobilinogen 1.0 Ur Leukocyte Esterase Negative Urine RBC 0-1/hpf Urine WBC 0-1/hpf Ur Squamous Epith Cells 0-1 /hpf Urine Bacteria Occasional (0-1) Ur Culture Indicated? Cult not indicated Vol Urine Centrifuged 10ml (spun) PFSH Medical History POLST (Physician Orders for Life-Sustaining Treatment) Encounter for annual wellness exam in Medicare patient HLD (hyperlipidemia) Kidney stones Insomnia Depression, unspecified Surgical History H/O vasectomy Hx of lithotripsy History of surgery History of total right hip replacement (~2015) S/P cervical spinal fusion (2011) Social History household members: spouse and other Tobacco & Substance Use Smoking Status: Former smoker alcohol intake: current Assessment & Plan Assessment and plan (1) Rib pain on right side: Status: Acute Plan This patient has no abdominal pain or any abdominal sign that can be elicited on physical exam. His labs are normal. He is point tender over the low rib cage in the right mid axillary line. Seems unlikely that the CT findings bear any relationship to his symptom, however EGD remains a reasonable choice to clarify the issue of the potential gastric mass. I discussed the foregoing with the patient and his who desired to proceed as I have outlined. We will accommodate him later this morning. Time-Based Coding :: [TOTAL MINUTES] spent with patient and on the chart (including review of chart, obtaining history, exam, reviewing outside data, placing orders, documenting exam and treatment plan, and counseling patient) on [DATE]. PROFEE Charge Codes Inpatient or Observation consultation: [id number]
[2025-04-03] MEDS: LACTATED RINGERS 1,000 ML 150 ML IV ×2 (10:18→11:11)
--- NOTE | 2025-04-03 11:11 | CM.DANOTE ---
Patient is a 74 yo male who was admitted OBS Status on 04/02/25 for Pain Management. Pt has [facility] and [facility] for insurance and his PCP is Dr. Emely Driscoll at [facility]. EMR was reviewed. Per MD, pt with hx of GERD and hypertension and admitted for significant pain control issues and made NPO for possible scope to r/o GI issue vs possible mass. Per Surgeon, plan for EGD today. SW met bedside with pt and life partner Kiersten and explained role and they confirm they live at home in [place] together and they are active and independent at baseline with ADLs. Pt denies any DME for ambulation and no hx of HH or SNF. Pt unsure if he completed POA pwk but informally would be his SO Kiersten and they will look at their Will and pwk to confirm if POA completed or not yet. Pt has POLST on file. Pt preference is to d/c home with SO assist when stable but clearly pt with symptoms of discomfort and pain and MD and RN working to get pt off IV dilaudid to PO pain medication. Pt does not anticipate any needs at d/c but hopeful for pain relief and answers to his medical condition with scope. Plan: SW to follow closely for EGD results to determine any discharge planning needs and confirm safe plan of home with SO assist and any further identified needs. SW to notify TCM team at d/c for outpt f/u with PCP Dr. Driscoll. CHRISTIANA García Discharge Planning/Care Management CM Discharge Assessment Start: 04/02/25 18:47 Freq: Status: Active Protocol: Document 04/03/25 11:09 BF (Rec: 04/03/25 11:11 [id number]) Discharge Planning Assessment Assigned Well Surveying Engineer CHRISTIANA Cobb DPOA/Assigned Designee Name pt unsure if he has completed pwk, but informally life partner Kiersten Advance Directives? No Advance Directives on File No History Provided By Patient,Significant Other, Medical Record Has Patient been admitted in last 30 No days? Prior Living Arrangements House Household Members significant other Comment Lives with life partner Kiersten Type of transporation used prior to Drives own vehicle admit Independent with ADL's Yes Is patient alert and oriented? Yes Caregiver for Another No Comment Pending EGD results and progress Barriers to Discharge No Discharge Plan Home Transportation Arrangement Sig Other bedside and can transport at d/c Additional Comment Pending progress and EGD results Whiteboard Updated in Patient Room with Yes name and ext. # of Well Surveying Engineer Review Status In Process Please Provide Date Initial DC 04/03/25 Assessment Was Performed Next Review Type Continued Stay Review
--- NOTE | 2025-04-03 11:21 | PM.OP.1 ---
Operative Date/Time/Diagnoses Date of procedure: 04/03/25 Time of procedure: 10:30 Pre-op diagnosis: Possible gastric mass Post-op diagnosis: other (No evidence of gastric mass. Several gastric polyps identified.) Procedure & Clinicians Procedure: EGD with biopsy of gastric polyps. Same procedure as scheduled: Yes Indications: Possible gastric mass on CT. Surgeon: Rishi Thrasher Click Yes if Unassisted: Yes Anesthesia Type: MAC +/- Operative Notes Findings: Multiple sessile and pedunculated gastric polyps Closure Type: not applicable Estimated Blood Loss (mL): 0 Procedure in detail: After obtaining informed consent properly identifying the patient, the patient was transported to the operating room and was placed on the table in the supine position. He was rolled to the left lateral decubitus position and IV sedation was administered. When an adequate level of sedation had been attained, the procedure was begun. A bite block was placed between the incisors and a flexible fiberoptic upper endoscope was passed under direct endoscopic vision into the esophagus stomach and duodenum. Exam was performed retrograde. Duodenum was visualized through its 3rd portion and was normal in appearance. The pyloric bulb was without evidence of mucosal abnormality or ulceration. There was no indication of an antral mass. At the confluence of the gastric antrum and corpus, a few 3 x 5 or 6 mm sessile gastric polyps were identified. These were biopsied with cold biopsy forceps. Next the corpus was examined and a few sessile polyps were identified among the gastric rugal folds. Two of these were extracted using a hot snare. The remainder of the corpus and gastric fundus were normal in appearance. The Z-line was of normal appearance and 40 cm from the incisors. The mid distal an upper esophagus were normal as the scope was withdrawn. The patient tolerated the procedure well and was transported to the recovery room in good condition. Complications: none Post-operative Condition: stable Plan for aftercare: Discharge to home when rib pain controlled.
--- NOTE | 2025-04-03 11:46 | SUR.PHASEI ---
Pt transferred o room 217 in . Able to stand indep to and bed. SBAR report to Yumiko SILVA.
[2025-04-03] MEDS: LACTATED RINGERS 1,000 ML 125 ML IV ×2 (12:30→21:28)
[2025-04-03] MEDS: OXYCODONE IR 10 MG TABLET PO (13:39)
[2025-04-03] MEDS: CYCLOBENZAPRINE 10 MG TABLET PO (19:06)
[2025-04-03] MEDS: ATORVASTATIN 20 MG TABLET 80 MG PO (20:24)
[2025-04-03] MEDS: CALCIUM CARBONATE 500 MG TAB PO (21:41)
[2025-04-04] VITALS: BP 165/72; PULSE 70; RESP 18; TEMP 35.9; O2SAT 99
[2025-04-04] MEDS: OXYCODONE IR 10 MG TABLET PO ×2 (02:07→05:37)
[2025-04-04 03:00] VITALS: O2SAT 98
[2025-04-04 04:29] LABS: Add Manual Diff / Slide Review NO; Basophils Absolute Auto 100 /uL (0-100); Eosinophils Absolute Auto 200 /uL (0-450); Eosinophils Percent Auto 2.4 % (2-4); Hematocrit 39.7 % (41-53); Hemoglobin 13.4 g/dL (13.5-17.5); Lymphocytes Absolute Auto 1000 /uL (1100-4500); Lymphocytes Percent Auto 11.5 % (25-40); Mean Corpuscular HGB Conc 33.8 % (30-36); Mean Corpuscular Hemoglobin 31.4 PG (26-34); Mean Corpuscular Volume 92.9 fL (80-100); Monocytes Absolute Auto 800 /uL (0-900); Neutrophils Absolute Auto 6400 /uL (1500-7000); Neutrophils Percent Auto 76.1 % (50-75); Platelet Count 257 X10^3/uL (150-400); Red Blood Cell Count 4.27 X10^6/uL (4.5-5.9); White Blood Cell Count 8.4 X10^3/uL (4.5-11.0)
[2025-04-04] MEDS: LACTATED RINGERS 1,000 ML 125 ML IV (05:38)
[2025-04-04] MEDS: HYDROMORPHONE 0.5 MG INJ IV (06:46)
[2025-04-04 07:55] VITALS: O2SAT 97
[2025-04-04] MEDS: CYCLOBENZAPRINE 10 MG TABLET PO (07:57)
[2025-04-04 08:00] VITALS: BP 158/88; PULSE 56; RESP 17; TEMP 36.1; O2SAT 96
--- NOTE | 2025-04-04 08:35 | PM.PN.IH.1 ---
Subjective Subjective Interval history: Right rib pain unchanged. Continues to deny abdominal pain. Was slightly nauseated last night, however he has an appetite this morning 1 day status post EGD with biopsy of gastric polyps. Exam Vital Signs (past 8 hours): - 04/04/25 03:00 Pulse Oximetry 98 Oxygen Delivery Method Room Air Oxygen Delivery Method Room Air Oxygen Flow Rate 0 Narrative Exam Narrative: Lungs are clear to auscultation. There is point tenderness in the right mid axillary line in approximately the 8th interspace. This was aggravated when the patient sat up on the edge of the bed this morning. It is otherwise unaffected by position or motion. Heart has a regular rate and rhythm with no murmur or gallop. Abdomen is soft and nontender with normal bowel sounds. Objective Labs 04/04/25 04:00 04/03/25 05:10 Labs: Laboratory Results - last 24 hr 04/04/25 04:00 WBC 8.4 RBC 4.27 L Hgb 13.4 L Hct 39.7 L MCV 92.9 MCH 31.4 MCHC 33.8 RDW 14.0 Plt Count 257 Neut % (Auto) 76.1 H Lymph % (Auto) 11.5 L [place] % (Auto) 9.0 Eos % (Auto) 2.4 Baso % (Auto) 1.0 Neut # (Auto) 6400 Lymph # (Auto) 1000 L [place] # (Auto) 800 Eos # (Auto) 200 Baso # (Auto) 100 PFSH Medical History POLST (Physician Orders for Life-Sustaining Treatment) Encounter for annual wellness exam in Medicare patient HLD (hyperlipidemia) Kidney stones Insomnia Depression, unspecified Surgical History H/O vasectomy Hx of lithotripsy History of surgery History of total right hip replacement (~2015) S/P cervical spinal fusion (2011) Social History household members: significant other Smoking Status: Former smoker alcohol intake: current Assessment & Plan Assessment and plan (1) Rib pain on right side: Status: Acute Plan Follow-up on gastric polyp pathology is indicated. This will likely take a week and a half to 2 weeks. Patient may follow up with me at that time for review. Right rib pain exacerbated by assumption of a sitting position militate in favor of some sort of intercostal neuropathy. This area of anatomy demonstrates no abnormality on CT scanning. There does not appear to be a correctable lesion. I recommend consideration be given to MRI of the thoracic and lumbar spine. Our answer may lie here. A pain clinic referral may afford symptomatic relief while the workup is ongoing. There is nothing from a general surgical perspective to offer the patient at this time. I will sign off and await follow-up for review of gastric polyp pathology. Time-Based Coding :: [TOTAL MINUTES] spent with patient and on the chart (including review of chart, obtaining history, exam, reviewing outside data, placing orders, documenting exam and treatment plan, and counseling patient) on [DATE]. Quality VTE Deep Vein Thrombosis/Pulmonary Embolism Present on Admission: No IH PROFEE Office Communication Professor Document charge(s): Yes
[2025-04-04] MEDS: ENOXAPARIN 40 MG/0.4 ML SYRINGE SUBCUT (10:17)
[2025-04-04] MEDS: LIDOCAINE 5% PATCH 1 EACH TOP (10:17)
[2025-04-04 11:00] VITALS: O2SAT 96
--- NOTE | 2025-04-04 12:27 | CM.DPNOTE ---
DCP Cont Reviewed chart. Patient discussed in multidisciplinary rounds. Patient OBS-->INPT today 04/04, patient remains on IV pain medication for abd pain and is not expected to discharge home today. EGD showed no mass. Patient lives in [place] w/[facility]. Plan remains discharge home w/close outpatient follow up with PCP Dr Yamila LYMAN team following clinical course closely in case any discharge needs or concerns arise. JW
--- NOTE | 2025-04-04 14:45 | P.DS_ITS ---
History of Present Illness History of Present Illness Chief complaint: Rt Rib pain, Nausea Narrative: From H&P: 74-year-old male with past medical history of GERD, depression, hypertension, hyperlipidemia presents with complaint of right upper quadrant abdominal pain. Per the patient's report, the patient recently was seen in his PCP clinic and was prescribed naproxen and suspicion for musculoskeletal etiology and causing his pain. The patient states that his pain is right sided lower rib versus upper quadrant abdominal pain. Despite taking naproxen at home patient continued to have significant abdominal pain. The patient admitted to have some nausea but denies any vomiting. The patient also denies any fever, chills, GI bleed, diarrhea, chest pain, shortness of breath or syncope. In our emergency room, the patient was hemodynamically stable. Labs were relatively benign including lipase LFTs. Troponin was also normal with EKG showing no signs of acute ischemia. Patient did require IV pain medication. CT angio of the chest shows no PE. CT abdomen and pelvis however shows questionable mass versus decompressed mucosa in the gastric antrum. General surgery was consulted and recommended that we admit the patient for pain control and n.p.o. for possible upper endoscopy in the morning. Discharge Providers Provider Date of admission: 04/04/25 10:14 Discharge Date: 04/04/25 Primary care physician: Emely Driscoll DO Consults: 04/03/25 07:46 Consult to General Surgery Routine Comment: Consulting Provider: Rishi Thrasher Reason for consultation: EGD Has provider been notified: Yes 04/03/25 11:45 Consult to Discharge Planning Routine Comment: Discharge provider: Robert Burton MD Summary Hospital Course Discharge Diagnosis: 1. Abdominal pain with possible gastric mass. Present on admission and improved. 2. GERD. Present on admission and stable. 3. Hypertension. Present on admission and stable. 4. Hyperlipidemia. Present on admission and stable. 5. Right anterior chest wall pain, present on admission and improved. Hospital Course: Patient was admitted with pain. The pain was actually in the right anterior thorax. The pain was constant, did not increase with deep breathing, palpation, or positional changes. Imaging indicated a normal thorax and musculoskeletal structures. The patient had a normal ECG and troponins. There is a question of a gastric mass, the patient underwent EGD which revealed only stomach polyps. The patient did improve with IV pain medications and a lidocaine patch was added. He also responded to muscle relaxants. In the day of discharge, he was comfortable returning home with lidocaine patches and Flexeril. He will see his PCP within a short interval time and consider outpatient physical therapy. Status at Discharge Cognitive/behavioral status at discharge: oriented Functional status at discharge: independent ambulation Overall status at discharge: patient is back to baseline Time Spent with Patient Time spent: Greater than 30 minutes Exam Vital Signs (past 8 hours): - 04/04/25 08:00 Temperature 96.9 F L Pulse Rate 56 L Respiratory Rate 17 Blood Pressure 158/88 H Pulse Oximetry 96 Oxygen Flow Rate 0 Oxygen Delivery Method Room Air Oxygen Flow Rate 0 Narrative Exam Narrative: NAD, alert and oriented. Fluent speech. Lungs are clear, normal rate and effort. Heart is regular, no murmur gallop or rub. Abdomen is soft, non distended. Extremities are free of edema. Thorax is nontender to palpation. There is no skin rash noted. Objective ECG Impression: Intervals [place] Rate: 64 P: 2 MT: 172 QRS: 256 QRSD: 144 T: 40 QT: 448 QTc: 462 Interpretive Statements Normal sinus rhythm Right bundle branch block (new) Imaging Multiple studies:: Radiologist's impression: Abdomen pelvis CT: Mild hepatic steatosis. Questionable mass versus decompressed mucosa at the gastric antrum. Correlate clinically and consider upper GI with barium. Incidental nonobstructing left kidney stone. Chest CTA: No pulmonary embolus. Heavy coronary artery calcification. Borderline prominent and shotty lymph nodes are present in the lower neck, mediastinum, cassandra region, and right axilla. Correlate with any history of lymphoma. These could be reactive and correlation with any prior imaging studies is recommended. Abdomen ultrasound: The gallbladder demonstrates a normal sonographic appearance. No biliary dilatation is seen. Labs 04/04/25 04:00 04/03/25 05:10 Labs: Laboratory Results - last 24 hr 04/04/25 04:00 WBC 8.4 RBC 4.27 L Hgb 13.4 L Hct 39.7 L MCV 92.9 MCH 31.4 MCHC 33.8 RDW 14.0 Plt Count 257 Neut % (Auto) 76.1 H Lymph % (Auto) 11.5 L [place] % (Auto) 9.0 Eos % (Auto) 2.4 Baso % (Auto) 1.0 Neut # (Auto) 6400 Lymph # (Auto) 1000 L [place] # (Auto) 800 Eos # (Auto) 200 Baso # (Auto) 100 PFSH Medical History POLST (Physician Orders for Life-Sustaining Treatment) Encounter for annual wellness exam in Medicare patient HLD (hyperlipidemia) Kidney stones Insomnia Depression, unspecified Surgical History H/O vasectomy Hx of lithotripsy History of surgery History of total right hip replacement (~2015) S/P cervical spinal fusion (2011) Social History household members: significant other Smoking Status: Former smoker alcohol intake: current Discharge Assessment & Plan Assessment and Plan Assessment: 1. Abdominal pain with possible gastric mass. Present on admission and improved. 2. Right anterior chest wall pain, present on admission and improved. Plan of Treatment: Stable for discharge home with the lidocaine patch changed q.day, oxycodone as needed pain, and cyclobenzaprine 10 mg t.i.d. as needed. Consideration for outpatient physical therapy. Discharge Plan Discharge Plan Patient Disposition: Home Provider Discharge Comment: Stable for discharge home with the lidocaine patch, oxycodone, and Robaxin. Discharge orders & Medications Prescriptions: New cyclobenzaprine 10 mg Tablet 10 mg PO Q8HR PRN (Reason: Spasms) Qty: 60 0RF lidocaine 5 % Adhesive Patch,Medicated 1 patch topical DAILY Qty: 30 1RF oxycodone 5 mg capsule 5 mg PO Q8H PRN (Reason: pain) Qty: 14 0RF Continued ezetimibe [Zetia] 10 mg tablet 10 mg PO DAILY Qty: 100 3RF pantoprazole 40 mg tablet,delayed release (DR/EC) 40 mg PO QAM Qty: 90 3RF losartan 50 mg tablet 50 mg PO DAILY Qty: 90 3RF atorvastatin [Lipitor] 80 mg tablet 80 mg PO BEDTIME Qty: 90 3RF naproxen 500 mg tablet 500 mg PO BID PRN (Reason: pain) Qty: 60 11RF Rx Instructions: with food lorazepam 0.5 mg tablet 0.5 mg PO BEDTIME PRN (Reason: Sleep) Discontinued hydrocodone-acetaminophen 5-325 mg tablet 1 tab PO Q6H PRN (Reason: pain) Qty: 30 0RF Follow up/Referrals: Emely Driscoll DO [Primary Care Provider] - Discharge Health Status Multidrug resistant organism: No MDRO Diet/Activity/Treatments Diet: Diet as Tolerated Skin/Wound/Dressing Care Report to your healthcare provider any signs of infection, such as:: increased pain Visit Report/Discharge Packet Instructions: Muscle Strain, DI for Stomach Polyps Stand Alone Forms: Patient Portal/API, EGD Result: [facility] Surg Discharge Data Primary Care Provider: Emely Driscoll Quality VTE Deep Vein Thrombosis/Pulmonary Embolism Present on Admission: No
[2025-04-04 15:00] VITALS: O2SAT 95
--- NOTE | 2025-04-04 16:58 | PC.NURSE ---
Pt reports pain is controlled enough he feels like he can go home. The flexaril is what turned it around for him he says.And the patch has been helpful. Seen by and given d/c instructions. Reviewed d/c packet by Evon SILVA. He feels he has received enough information.Pt d/c to home via auto with friend.
== END 2025-04-04 15:35 | disposition home or self-care (01) | DRG 204 ==
LOC: ED 18:43 → AC 18:44
PROVIDERS: Emergency Medicine; Surgery; Admitting Provider Hospitalist; Emergency Provider Student in an Organized Health Care Education/Training Program; PCP Family Medicine; Referring Provider Student in an Organized Health Care Education/Training Program; Visit Provider Hospitalist
PROC: 0DJ08ZZ Inspection of Upper Intestinal Tract, Via Natural or Artificial Opening Endoscopic (ICD-10-PCS; principal; 2025-04-03 09:45)
DX: R07.81 Pleurodynia (principal); K21.9 Gastro-esophageal reflux disease without esophagitis; I10 Essential (primary) hypertension; E78.5 Hyperlipidemia, unspecified; R07.89 Other chest pain; K31.7 Polyp of stomach and duodenum; R10.11 Right upper quadrant pain; Z66 Do not resuscitate; Z87.891 Personal history of nicotine dependence
CPT/HCPCS: 36415; 71275; 74177; 76705; 80048; 80053; 81001; 82550; 83690; 83880; 84484; 85025; 85379; 93005; 93010; 96374; 96375; 99284; G0378; J1171; J1650; J1885; J2270; J2405; J2704; Q9967

== ENCOUNTER → 2025-04-10 15:57 | Outpatient (CLI) | payer MEDICARE, OTHER, SELFPAY ==
[2025-04-02 18:47] VITALS: BMI 27.5
[2025-04-10 16:14] LABS: Add Manual Diff / Slide Review NO; Basophils Absolute Auto 0 /uL (0-100); Basophils Percent Auto 0.6 % (0-2); Eosinophils Absolute Auto 300 /uL (0-450); Hematocrit 39.9 % (41-53); Hemoglobin 13.4 g/dL (13.5-17.5); Lymphocytes Absolute Auto 1200 /uL (1100-4500); Lymphocytes Percent Auto 25.7 % (25-40); Mean Corpuscular HGB Conc 33.7 % (30-36); Mean Corpuscular Hemoglobin 31.2 PG (26-34); Mean Corpuscular Volume 92.7 fL (80-100); Monocytes Absolute Auto 800 /uL (0-900); Monocytes Percent Auto 16.5 % (3-14); Neutrophils Absolute Auto 2500 /uL (1500-7000); Neutrophils Percent Auto 51.2 % (50-75); Platelet Count 263 X10^3/uL (150-400); Red Blood Cell Count 4.31 X10^6/uL (4.5-5.9); Red Cell Distribution Width 13.9 % (11.6-14.8); White Blood Cell Count 4.8 X10^3/uL (4.5-11.0)
[2025-04-10 16:57] LABS: Creatine Kinase 176 U/L (55-170)
== END ==
PROVIDERS: PCP Family Medicine; Referring Provider Family Medicine; Visit Provider Physician Assistant
DX: I10 Essential (primary) hypertension (principal); R07.81 Pleurodynia
CPT/HCPCS: 36415; 82550; 85025

== ENCOUNTER → 2025-08-28 12:58 | Outpatient (CLI) | payer MEDICARE, OTHER, SELFPAY | PROVIDERS: PCP Family Medicine; Referring Provider Family Medicine; Visit Provider Family Medicine | DX: Z12.11 Encounter for screening for malignant neoplasm of colon (principal) | CPT/HCPCS: 82274 ==

== ENCOUNTER → 2025-09-21 13:27 | Outpatient (CLI) | payer MEDICARE, OTHER, SELFPAY ==
[2025-09-21 13:52] LABS: Hematocrit 41.5 % (41-53); Hemoglobin 14.0 g/dL (13.5-17.5); Mean Corpuscular HGB Conc 33.7 % (30-36); Mean Corpuscular Hemoglobin 31.1 PG (26-34); Mean Corpuscular Volume 92.4 fL (80-100); Platelet Count 253 X10^3/uL (150-400)
[2025-09-21 14:01] LABS: Alanine Aminotransferase 36 IU/L (<50); Albumin 4.2 g/dL (3.5-5.0); Albumin Globulin Ratio 1.4 (1.0-2.8); Alkaline Phosphatase 76 U/L (38-126); Blood Urea Nitrogen 16 mg/dL (9-20); Calcium 9.1 mg/dL (8.4-10.2); Carbon Dioxide 26 mmol/L (22-32); Chloride 107 mmol/L (98-107); Cholesterol 155 mg/dL (140-199); Estimated Glomerular Filt Rate > 60 mL/min (>60); Globulin 3.0 g/dL (1.7-4.1); Glucose 101 mg/dL (70-99); HDL Cholesterol 65 mg/dL (40-60); HEMOLYSIS < 15 (0-50); Potassium 4.4 mmol/L (3.4-5.1); Sodium 139 mmol/L (137-145); Total Protein 7.2 g/dL (6.3-8.2); Triglycerides 118 mg/dL (35-150)
[2025-09-21 14:02] LABS: Hemoglobin A1C% w Est Avg Glu 6.0 % (4.0-6.0)
== END ==
PROVIDERS: PCP Family Medicine; Referring Provider Family Medicine; Visit Provider Family Medicine
DX: Z00.00 Encounter for general adult medical examination without abnormal findings (principal); E78.2 Mixed hyperlipidemia; R73.01 Impaired fasting glucose; Z12.5 Encounter for screening for malignant neoplasm of prostate; Z80.7 Family history of other malignant neoplasms of lymphoid, hematopoietic and related tissues; F10.10 Alcohol abuse, uncomplicated; K21.9 Gastro-esophageal reflux disease without esophagitis; I10 Essential (primary) hypertension; D64.9 Anemia, unspecified
CPT/HCPCS: 36415; 80053; 80061; 83036; 85027; G0103